=== PATIENT | male | born 1950 | race Caucasian/White ===

== ENCOUNTER 2020-07-31 13:56 | Outpatient (CLI) | payer MEDICARE, SELFPAY ==
--- NOTE | ~2020-07-31 | US_ITS ---
EXAMINATION: US thyroid DATE: 07/31/2020 14:31 INDICATION: Nontoxic goiter TECHNIQUE: Multiple ultrasound images of the thyroid were obtained. COMPARISON: None. FINDINGS: The right thyroid lobe measures 3.8 x 1.1 x 1.4 cm. The left thyroid lobe measures 3.6 x 1.0 x 1.1 c m. There is normal echotexture and echogenicity throughout the thyroid gland. No discrete nodules id entified. Normal vascular flow is present. IMPRESSION: 1. Unremarkable thyroid. Reviewed, dictated and finalized at location A. IMPRESSION: 1. Unremarkable thyroid.
== END 2020-07-31 13:57 | disposition home or self-care (01) ==
PROVIDERS: PCP Family Medicine; Visit Provider Family Medicine
DX: E04.9 Nontoxic goiter, unspecified (principal)
CPT/HCPCS: 76536

== ENCOUNTER 2021-03-26 07:26 | Outpatient (RCR) | payer MEDICARE, SELFPAY ==
[2021-03-26] MEDS: diphenhydrAMINE HCl CAP 25 MG CAPSULE PO (08:02)
[2021-03-26] MEDS: ACETAMINOPHEN 325 MG TABLET 650 MG PO (08:02)
[2021-03-26] MEDS: FAMOTIDINE 20 MG TABLET PO (08:02)
[2021-03-26 08:03] VITALS: BP 123/57; PULSE 88; RESP 18; TEMP 36.6; O2SAT 100
[2021-03-26 09:28] VITALS: BP 123/59; PULSE 70; O2SAT 99
== END 2021-03-26 17:00 ==
LOC: AMCINF 07:26
PROVIDERS: PCP Family Medicine; Visit Provider Internal Medicine Hematology & Oncology
DX: U07.1 COVID-19 (principal); C90.00 Multiple myeloma not having achieved remission; I10 Essential (primary) hypertension; D84.9 Immunodeficiency, unspecified; Z94.0 Kidney transplant status
CPT/HCPCS: A9270; M0247; Q0247

== ENCOUNTER 2021-07-01 08:01 | Outpatient (CLI) | payer MEDICARE, SELFPAY ==
[2021-07-01 08:31] LABS: Basophils Absolute Auto 0.1 K/mm3 (0.0-0.1); Basophils Percent Auto 0.8 % (0.2-1.2); Eosinophils Absolute Auto 0.3 K/mm3 (0-0.3); Eosinophils Percent Auto 4.2 % (0-4.4); Hematocrit 42.8 % (42.0-52.0); Hemoglobin 14.4 g/dL (14.0-18.0); Immature Granulocyte Absolute 0.04 K/mm3 (0.00-0.031); Immature Granulocyte Percent A 0.5 % (0-0.5); Lymphocytes Absolute Auto 1.47 K/mm3 (0.9-3.2); Lymphocytes Percent Auto 19.7 % (18.3-44.2); Mean Corpuscular HGB Conc 33.6 g/dl (32-36); Mean Corpuscular Hemoglobin 33.4 pg (26-34); Mean Corpuscular Volume 99.3 fl (80-100); Mean Platelet Volume 9.2 fl (7.4-10.4); Monocytes Absolute Auto 0.8 K/mm3 (0.1-0.6); Monocytes Percent Auto 10.2 % (2.6-8.5); Neutrophils Absolute Auto 4.8 K/mm3 (1.3-6.7); Neutrophils Percent Auto 64.6 % (45.5-73.1); Platelet Count Result 144 k/mm3 (150-375); Red Blood Count 4.31 M/mm3 (4.6-6.20); Red Cell Distribution Width 13.2 % (11.5-14.5); White Blood Count 7.5 K/mm3 (4.5-10.0)
[2021-07-01 08:39] LABS: INR 1.1
[2021-07-01 08:40] LABS: Partial Thromboplastin Time 26.2 SECONDS (22.3-36.8)
[2021-07-01 08:42] LABS: Anion Gap 6 mmol/L (8-16); Blood Urea Nitrogen 15 mg/dL (9-20); Calcium 9.1 mg/dL (8.4-10.2); Carbon Dioxide 27 mmol/L (22-30); Chloride 107 mmol/L (98-107); Estimated Glomerular Filt Rate > 60; Glucose 103 mg/dL (65-110); Potassium 3.8 mmol/L (3.4-5.0); Sodium 140 mmol/L (137-145)
== END 2021-07-01 08:02 | disposition home or self-care (01) ==
LOC: ANHSURGERY 08:08
PROVIDERS: Anesthesiology; PCP Family Medicine; Visit Provider Surgery
DX: K42.9 Umbilical hernia without obstruction or gangrene (principal); Z94.0 Kidney transplant status; N28.9 Disorder of kidney and ureter, unspecified
CPT/HCPCS: 36415; 80048; 85025; 85610; 85730

== ENCOUNTER 2021-08-26 09:16 | Outpatient (CLI) | payer MEDICARE, SELFPAY ==
[2021-08-26 10:05] LABS: INR 1.1; Prothrombin Time 13.8 Seconds (11.1-14.7)
[2021-08-26 10:06] LABS: Partial Thromboplastin Time 26.3 SECONDS (22.3-36.8)
== END 2021-08-26 09:17 | disposition home or self-care (01) ==
LOC: ANHSURGERY 09:21
PROVIDERS: Anesthesiology; PCP Family Medicine; Visit Provider Surgery
DX: Z94.0 Kidney transplant status (principal); Z01.818 Encounter for other preprocedural examination
CPT/HCPCS: 36415; 85610; 85730

== ENCOUNTER 2021-09-02 01:08 | Day surgery (SDC) | payer MEDICARE, SELFPAY ==
[2021-06-26 15:06] VITALS: BMI 26.3
--- NOTE | 2021-06-26 15:36 | PC.NURSE ---
Report to the Outpatient Waiting Room, entrance under the green pavilion located off [facility], at time __12:00PM on date ___07/03/21____. OR Time: __2:00PM . - You and your visitor will be asked a series of questions to screen for COVID 19 for your protection. - A mask is required within the hospital. Preoperative COVID Testing Requirements: No COVID Test needed if: (proof is required; if not received patient will have Rapid Test prior to entry) - Patient has received COVID Vaccine at least 14 days prior to procedure date or - Patient has positive COVID test result within last 90 days of surgery date. COVID Test needed if above criteria is not met If not COVID vaccinated a COVID test must be conducted within 72 hours of surgery and patient is asked to isolate self from time of testing until procedure. You will go to the [facility] for your COVID testing. The [facility] is located at the corner of [address] [facility]. You will only be called if COVID results are positive and your surgeon may reschedule your elective surgery date. Patients may have clear liquids (water, carbonated beverages, clear teas, apple juice) until 3 hours prior to surgery with a maximum of 20 ounces. - No food from midnight until time of surgery - Infants may have breast milk until 4 hours before surgery, formula 6 hours prior to surgery. - Children will be allowed to drink immediately following surgery. If applicable, please bring a bottle or sippy cup to assist with drinking. Juice, water, soda, and popsicles are readily available. For infants on formula, please bring formula the day of surgery. Pacifiers are allowed. Take the following medications with a SIP of water the morning of surgery: __LEVOTHYROXINE, MYCOPHENOLATE, PREDNISONE, TACROLIMUS Medications to discontinue per physician VITAMINS/SUPPLEMENTS 3 DAYS PRE-OP Date to take last dose 06/29/21 Please no make-up, nail afghan, hairspray, perfume, deodorant, or body powder the day of surgery. No jewelry (including any body piercings) or valuables the day of surgery, leave them at home. Please take a shower or bath the night before, or the morning of, surgery with an antibacterial soap. Wear comfortable, loose fitting clothing. Children are encouraged to wear pajamas. - Jewelry must be removed prior to entering the operating room. Rings and piercings that are not removed may be cut off. - The hospital will not accept responsibility for valuables. - Please leave all valuables, including medications, at home the day of surgery. If you are going home after surgery, a licensed stake driver must drive you home. - NO public transportation without another adult. - We recommend that an adult stay with you for 24 hours following discharge. - We also recommend that you do not drive, make important decision, drink alcoholic beverages, or take any drugs that were not prescribed by your health care provider for at least 24 hours after your discharge time. For Pediatric surgeries, we recommend two adults accompany the child home (only one inside the building at this time). One visitor will be allowed to accompany the patient into the hospital. Patients visitor will be instructed to remain with patient at all times or leave the building. We will allow the visitor to come back to the postoperative area when patient is ready. Follow any additional instructions given to you from your surgeon. Telephone instructions given to _PATIENT and asked if any additional questions and then verbalized understanding. Patient advised to call surgeon office or pre surgery nurse liaison [phone] if any additional questions.
--- NOTE | 2021-07-01 13:24 | PC.NURSE ---
Report to the Outpatient Waiting Room, entrance under the green pavilion located off [facility], at time _0830 on date _07/07/21 . OR Time: __1030 . - You and your visitor will be asked a series of questions to screen for COVID 19 for your protection. - A mask is required within the hospital. Preoperative COVID Testing Requirements: No COVID Test needed if: (proof is required; if not received patient will have Rapid Test prior to entry) - Patient has received COVID Vaccine at least 14 days prior to procedure date or - Patient has positive COVID test result within last 90 days of surgery date. COVID Test needed if above criteria is not met If not COVID vaccinated a COVID test must be conducted within 72 hours of surgery and patient is asked to isolate self from time of testing until procedure. You will go to the [facility] for your COVID testing. The [facility] is located at the corner of [address] [facility]. You will only be called if COVID results are positive and your surgeon may reschedule your elective surgery date. Patients may have clear liquids (water, carbonated beverages, clear teas, apple juice) until 3 hours prior to surgery with a maximum of 20 ounces. - No food from midnight until time of surgery - Infants may have breast milk until 4 hours before surgery, infant formula 6 hours prior to surgery. - Children will be allowed to drink immediately following surgery. If applicable, please bring a bottle or sippy cup to assist with drinking. Juice, water, soda, and popsicles are readily available. For infants on formula, please bring formula the day of surgery. Pacifiers are allowed. Take the following medications with a SIP of water the morning of surgery: LEVOTHYROXINE,MYCOPHENOLATE,PREDNISONE,TACROLIMUS Medications to discontinue per physician ALL VITAMINS/SUPPLEMENTS 3 DAYS PRE OP Date to take last dose___07/03/21 Please no make-up, nail czech, hairspray, perfume, deodorant, or body powder the day of surgery. No jewelry (including any body piercings) or valuables the day of surgery, leave them at home. Please take a shower or bath the night before, or the morning of, surgery with an antibacterial soap. Wear comfortable, loose fitting clothing. Children are encouraged to wear pajamas. - Jewelry must be removed prior to entering the operating room. Rings and piercings that are not removed may be cut off. - The hospital will not accept responsibility for valuables. - Please leave all valuables, including medications, at home the day of surgery. HIBICLENS SHOWER MORNING OF SURGERY If you are going home after surgery, a licensed auto parts delivery driver must drive you home. - NO public transportation without another adult. - We recommend that an adult stay with you for 24 hours following discharge. - We also recommend that you do not drive, make important decision, drink alcoholic beverages, or take any drugs that were not prescribed by your health care provider for at least 24 hours after your discharge time. For Pediatric surgeries, we recommend two adults accompany the child home (only one inside the building at this time). One visitor will be allowed to accompany the patient into the hospital. Patients visitor will be instructed to remain with patient at all times or leave the building. We will allow the visitor to come back to the postoperative area when patient is ready. Follow any additional instructions given to you from your surgeon. Telephone instructions given to ___PT and asked if any additional questions and then verbalized understanding. Patient advised to call surgeon office or pre surgery nurse liaison [phone] if any additional questions.
--- NOTE | 2021-07-01 13:27 | PC.NURSE ---
PT STATES NO CHANGE IN HEALTH HX SINCE LAST INTERVIEW ON 06/26/21
[2021-08-07 14:27] VITALS: BMI 26.4
--- NOTE | 2021-08-07 14:50 | PC.NURSE ---
Report to the Outpatient Waiting Room, entrance under the green pavilion located off [facility], at time __6:30AM on date _08/19/21 . OR Time: __8:30AM . - You and your visitor will be asked a series of questions to screen for COVID 19 for your protection. - Only one visitor is allowed at this time. - The patient visitor is requested to leave or wait in car when not with patient. - A mask is required within the hospital. Patients may have clear liquids (water, carbonated beverages, clear teas, apple juice) until 3 hours prior to surgery with a maximum of 20 ounces. - No food from midnight until time of surgery - Infants may have breast milk until 4 hours before surgery, formula 6 hours prior to surgery. - Children will be allowed to drink immediately following surgery. If applicable, please bring a bottle or sippy cup to assist with drinking. Juice, water, soda, and popsicles are readily available. For infants on formula, please bring formula the day of surgery. Pacifiers are allowed. Take the following medications with a SIP of water the morning of surgery: ___LEVOTHYROXINE, MYCOPHENOLATE, PREDNISONE, TACROLIMUS Medications to discontinue per physician ___HOLD ALL VITAMINS/SUPPLEMENTS 3 DAYS PRE-OP-LAST DOSE 08/15/21 NOT NECESSARY TO STOP ASPIRIN IN ADVANCE PER DR GUEVARA. Please no make-up, nail cambodian, hairspray, perfume, deodorant, or body powder the day of surgery. No jewelry (including any body piercings) or valuables the day of surgery, leave them at home. Please take a shower or bath the night before, or the morning of, surgery with an antibacterial soap. Wear comfortable, loose fitting clothing. Children are encouraged to wear pajamas. - Jewelry must be removed prior to entering the operating room. Rings and piercings that are not removed may be cut off. - The hospital will not accept responsibility for valuables. - Please leave all valuables, including medications, at home the day of surgery. *HIBICLEN SHOWER MORNING OF SURGERY If you are going home after surgery, a licensed otr van cdl truck driver must drive you home. - NO public transportation without another adult. - We recommend that an adult stay with you for 24 hours following discharge. - We also recommend that you do not drive, make important decision, drink alcoholic beverages, or take any drugs that were not prescribed by your health care provider for at least 24 hours after your discharge time. For Pediatric surgeries, we recommend two adults accompany the child home (only one inside the building at this time). Follow any additional instructions given to you from your surgeon. If you or anyone in your household have experienced Covid symptoms in the past week, please notify your surgeon or the nurse liaison at the phone number below for possible testing. Telephone instructions given to __PATIENT and asked if any additional questions and then verbalized understanding. Patient advised to call surgeon office or pre surgery nurse liaison [phone] if any additional questions.
[2021-08-21 09:35] VITALS: BMI 27.0
--- NOTE | 2021-08-21 09:37 | PC.NURSE ---
Report to the Outpatient Waiting Room, entrance under the green pavilion located off [facility], at time __10:00AM on date __09/02/21 . OR Time: __12:00PM . - You and your visitor will be asked a series of questions to screen for COVID 19 for your protection. - Only one visitor is allowed at this time. - The patient visitor is requested to leave or wait in car when not with patient. - A mask is required within the hospital. Patients may have clear liquids (water, carbonated beverages, clear teas, apple juice) until 3 hours prior to surgery with a maximum of 20 ounces. - No food from midnight until time of surgery - Infants may have breast milk until 4 hours before surgery, formula 6 hours prior to surgery. - Children will be allowed to drink immediately following surgery. If applicable, please bring a bottle or sippy cup to assist with drinking. Juice, water, soda, and popsicles are readily available. For infants on formula, please bring formula the day of surgery. Pacifiers are allowed. Take the following medications with a SIP of water the morning of surgery: _LEVOTHYROXINE, MYCOPHENOLATE, PREDNISONE, TACROLIMUS Medications to discontinue per physician HOLD ALL VITAMINS/SUPPLEMENTS 3 DAYS PRE-OP Date to take last dose 08/29/21 NOT NECESSARY TO HOLD ASPIRIN PER DR GUEVARA. Please no make-up, nail kosovan, hairspray, perfume, deodorant, or body powder the day of surgery. No jewelry (including any body piercings) or valuables the day of surgery, leave them at home. Please take a shower or bath the night before, or the morning of, surgery with an antibacterial soap. Wear comfortable, loose fitting clothing. Children are encouraged to wear pajamas. - Jewelry must be removed prior to entering the operating room. Rings and piercings that are not removed may be cut off. - The hospital will not accept responsibility for valuables. - Please leave all valuables, including medications, at home the day of surgery. If you are going home after surgery, a licensed otr company driver must drive you home. - NO public transportation without another adult. - We recommend that an adult stay with you for 24 hours following discharge. - We also recommend that you do not drive, make important decision, drink alcoholic beverages, or take any drugs that were not prescribed by your health care provider for at least 24 hours after your discharge time. For Pediatric surgeries, we recommend two adults accompany the child home (only one inside the building at this time). Follow any additional instructions given to you from your surgeon. If you or anyone in your household have experienced Covid symptoms in the past week, please notify your surgeon or the nurse liaison at the phone number below for possible testing. Telephone instructions given to ___PATIENT and asked if any additional questions and then verbalized understanding. Patient advised to call surgeon office or pre surgery nurse liaison [phone] if any additional questions.
--- NOTE | 2021-08-31 16:39 | PM.SD2 ---
Same Day Admit/Disch: HPI History of Present Illness Chief complaint: umbilical hernia Narrative: Naeem Ramirez is a 71 year old male With a history of multiple myeloma currently in remission. He has a history of chronic kidney disease but stable creatinine of 1.2. He had a kidney transplant and takes tacrolimus and mycophenolate. This is a living related donor transplant and was performed in February of 2020. He recently had a sinus infection treated with amoxicillin which has resolved. He noticed a tender bulge in the umbilical area last February. This has been occasionally painful and persistently tender. He was seen in the office and found to have a reducible umbilical hernia. He is taken to surgery now for umbilical hernia repair with mesh. His myeloma has been in remission for 3 years. [facility] Past Medical History Medical History Abnormal fasting glucose BMI 26.0-26.9,adult BPH without obstruction/lower urinary tract symptoms Chronic anemia Chronic anxiety Chronic kidney disease (CKD) stage G4/A3, severely decreased glomerular filtration rate (GFR) between 15-29 mL/min/1.73 square meter and albuminuria creatinine ratio greater than 300 mg/g Enlarged thyroid Male erectile dysfunction, unspecified Nocturia Sinusitis, acute Vitamin D insufficiency Surgical History Surgical History Renal transplant recipient Family History Family History Father Family history of cardiovascular disease, Onset Age: 83 Family history of chronic obstructive pulmonary disease, Onset Age: 83 Family history of renal failure, Onset Age: 83 Sibling Acute myocardial infarction, Onset Age: 62 Grandparent Family history of malignant neoplasm Family history of chronic obstructive pulmonary disease, Onset Age: 83 Social History Social History Smoking packs per day: 0.5 Smoking cigarettes per day: 10.0 Years smoked: 10 Smoking pack-years: 5.00 Smoking status: Former smoker Tobacco type: cigarettes Smoking end date: 09/12/79 Additional smoking assessment comments: 1/2 pack daily for ten years Alcohol intake: current Drinks per week: 6 Alcohol use details: Rarely Substance use: never Substance use type: does not use Living arrangements: with family Additional living arrangements comments: Spiritual care concerns: No Same Day Admit/Disch: Med Pre-admit Medications Home Medications Medication Instructions Recorded Confirmed Type B-complex with vitamin C 1 cap PO DAILY 01/17/19 09/02/21 History aspirin 81 mg tablet,delayed 81 mg PO DAILY 01/17/19 09/02/21 History release sennosides 8.6 mg-docusate sodium 1 tab-cap PO DAILY PRN Constipation 01/17/19 09/02/21 History 50 mg tablet (Senna with Docusate Sodium) cholecalciferol (vitamin D3) 25 2,000 unit PO DAILY 07/28/20 09/02/21 History mcg (1,000 unit) capsule prednisone 5 mg tablet 5 mg PO QAM 07/28/20 09/02/21 History atorvastatin 10 mg tablet 10 mg PO DAILY #90 tabs 09/16/20 09/02/21 Rx quetiapine 50 mg tablet 25 mg PO .qhs #90 tabs 09/29/20 09/02/21 Rx mycophenolate sodium 180 mg 180 mg PO QAM 02/02/21 09/02/21 History tablet,delayed release sildenafil (pulm.hypertension) 20 20 mg PO DAILY PRN Erectile 06/26/21 09/02/21 History mg tablet Dysfunction tacrolimus 0.75 mg tablet,extended 1.5 mg PO QAM 06/26/21 09/02/21 History release 24 hr tamsulosin 0.4 mg capsule (Flomax) 0.8 mg PO HS 08/07/21 09/02/21 History levothyroxine 75 mcg tablet 75 mcg PO QAM #90 tabs 08/17/21 09/02/21 Rx amoxicillin 875 mg tablet 875 mg PO Q12H #20 tabs 08/18/21 09/02/21 Rx hydrocodone 5 mg-acetaminophen 325 1 - 2 tablet PO Q6H PRN pain #12 09/02/21 Rx mg tablet tabs Exam Const: General: comfo
[2021-09-02 10:31] VITALS: BP 132/69; PULSE 60; RESP 18; TEMP 36; O2SAT 99
[2021-09-02] MEDS: LACTATED RINGERS 1,000 ML 30 ML IV CONT (10:44)
[2021-09-02] MEDS: ACETAMINOPHEN 500 MG TABLET 1000 MG PO (10:58)
--- NOTE | 2021-09-02 11:16 | WPDANESEPPF ---
Anes - Initial Pre Proc Eval Procedure: Operation Date: 09/02/21 12:00 Proposed Procedures p Umbilical Hernia Repair with Mesh - Matthew Warren MD Date/Time: 09/02/21 11:16 Surgeon: Matthew Warren MD Pre Op Diagnosis: umbilical hernia Patient Data Age: 71 Gender: M Height: 1.91 m Weight: 96.2 kg Last Vital Signs Temp 36.0 C L 09/02/21 10:31 Pulse 60 09/02/21 10:31 Resp 18 09/02/21 10:31 BP 132/69 09/02/21 10:31 Pulse Ox 99 09/02/21 10:31 O2 Del Method Room Air 09/02/21 10:31 Allergies Allergy/AdvReac Type Severity Reaction Status Date / Time No Known Allergies Allergy Verified 09/02/21 10:23 Home Medications Medication Instructions Recorded Confirmed Type B-complex with vitamin C 1 cap PO DAILY 01/17/19 09/02/21 History aspirin 81 mg tablet,delayed 81 mg PO DAILY 01/17/19 09/02/21 History release sennosides 8.6 mg-docusate sodium 1 tab-cap PO DAILY PRN Constipation 01/17/19 09/02/21 History 50 mg tablet (Senna with Docusate Sodium) cholecalciferol (vitamin D3) 25 2,000 unit PO DAILY 07/28/20 09/02/21 History mcg (1,000 unit) capsule prednisone 5 mg tablet 5 mg PO QAM 07/28/20 09/02/21 History atorvastatin 10 mg tablet 10 mg PO DAILY #90 tabs 09/16/20 09/02/21 Rx quetiapine 50 mg tablet 25 mg PO .qhs #90 tabs 09/29/20 09/02/21 Rx mycophenolate sodium 180 mg 180 mg PO QAM 02/02/21 09/02/21 History tablet,delayed release sildenafil (pulm.hypertension) 20 20 mg PO DAILY PRN Erectile 06/26/21 09/02/21 History mg tablet Dysfunction tacrolimus 0.75 mg tablet,extended 1.5 mg PO QAM 06/26/21 09/02/21 History release 24 hr tamsulosin 0.4 mg capsule (Flomax) 0.8 mg PO HS 08/07/21 09/02/21 History levothyroxine 75 mcg tablet 75 mcg PO QAM #90 tabs 08/17/21 09/02/21 Rx amoxicillin 875 mg tablet 875 mg PO Q12H #20 tabs 08/18/21 09/02/21 Rx hydrocodone 5 mg-acetaminophen 325 1 - 2 tablet PO Q6H PRN pain #12 09/02/21 Rx mg tablet tabs Patient hx anesthesia problems: none Family hx anesthesia problems: none Results Review: All pre-operative results and documents have been reviewed as part of the pre-operative evaluation. [facility] Past Medical History Medical History Abnormal fasting glucose BMI 26.0-26.9,adult BPH without obstruction/lower urinary tract symptoms Chronic anemia Chronic anxiety Chronic kidney disease (CKD) stage G4/A3, severely decreased glomerular filtration rate (GFR) between 15-29 mL/min/1.73 square meter and albuminuria creatinine ratio greater than 300 mg/g Enlarged thyroid Male erectile dysfunction, unspecified Nocturia Sinusitis, acute Vitamin D insufficiency Surgical History Surgical History Renal transplant recipient Family History Family History Father Family history of cardiovascular disease, Onset Age: 83 Family history of chronic obstructive pulmonary disease, Onset Age: 83 Family history of renal failure, Onset Age: 83 Sibling Acute myocardial infarction, Onset Age: 62 Grandparent Family history of malignant neoplasm Family history of chronic obstructive pulmonary disease, Onset Age: 83 Social History Social History Smoking packs per day: 0.5 Smoking cigarettes per day: 10.0 Years smoked: 10 Smoking pack-years: 5.00 Smoking status: Former smoker Tobacco type: cigarettes Smoking end date: 09/12/79 Additional smoking assessment comments: 1/2 pack daily for ten years Alcohol intake: current Drinks per week: 6 Alcohol use details: Rarely Substance use: never Substance use type: does not use Living arrangements: with family Additional living arrangements comments: Spiritual care concerns: No Anes - Eval Final PreProcedure Da
--- NOTE | 2021-09-02 11:28 | WPDHPUPDATE1 ---
History and Physical Update Update Date/Time: 09/02/21 11:28 History and Physical has been reviewed, including an updated exam of the patient. There are NO changes in the patient's condition. Risks, benefits, and alternatives have been discussed and questions answered. Patient agrees to proceed with procedure.
[2021-09-02] MEDS: ceFAZolin 2 GM/D5W 50 ML 2 GM/50 ML BAG IVPB (11:47)
[2021-09-02] MEDS: LIDO 1%/EPINEPHRINE/PF 1:200,000 30 ML VIAL XX (11:58)
[2021-09-02 12:35] VITALS: BP 96/47; PULSE 61; RESP 16; O2SAT 94
[2021-09-02 13:05] VITALS: BP 107/55; PULSE 57; RESP 20
[2021-09-02 13:35] VITALS: BP 107/55; PULSE 56; RESP 20
[2021-09-02 13:55] VITALS: BP 113/58; PULSE 56; RESP 20
--- NOTE | 2021-09-02 15:38 | W.PM.PROC2 ---
Procedure Note - Detailed Date of Procedure 09/02/21 Pre-op Diagnosis umbilical hernia Post-op Diagnosis Same Procedure Performed Umbilical hernia repair with mesh Surgeon Matthew Warren MD Supervisor Hand Workers Alia POOL Anesthesia General (G IV S) and Local (1% lidocaine with epinephrine) Indications Patient has a symptomatic reducible umbilical hernia. He is taken to surgery now for repair. Findings Patient had about a 1 cm defect. Description of Procedure Patient was checked in the preoperative holding area. He was taken to surgery and anesthesia was introduced. The abdomen is prepped and draped. The proposed incision was drawn along the upper margin of the umbilicus. Local anesthetic was infiltrated into the skin and the deeper subcutaneous tissues. Incision was then made dissection carried down through the subcutaneous. Crossing veins were cauterized and divided. We dissected down to the hernia sac and then dissected around the hernia sac. The fascia around the hernia defect was exposed. I infiltrated additional local into the fascia and the base of the hernia sac. I then divided the hernia sac at its base. There was some properitoneal fat in the hernia defect. This was excised and discarded as well. Care was taken to avoid injury to the umbilical skin. I placed a finger in the hernia defect and checked for any hernias in the area. None were seen. I chose a 4.[address] mesh patch. This was placed in the defect and centered appropriately. 0 Ethibond sutures were then placed in the cranial and caudal midline. These sutures were placed in such a fashion that they would draw the edges of the hernia defect towards 1 another 1 tied. I tied the suture in the had the desired effect. I removed the straps associated with the Ventralex ST patch. I then closed the hernia defect over the mesh with [id number] mattress sutures of 0 Ethibond. Each of these suture incorporated a bit of mesh as well. I infiltrated additional local around the area of the repair. The umbilical skin was then sutured to the fascia with 3-0 Vicryl. Some subcutaneous 3-0 Vicryl sutures were placed. The skin was loosely approximated with subcuticular interrupted 4-0 Vicryl suture. Finally a running 4-0 Monocryl skin suture was placed to close the skin. The wound was dressed with Exofin surgical adhesive. The patient was awakened and taken to recovery in good condition. Sponge and needle counts were correct x2. Implants 4.[address] patch Estimated Blood Loss -5 Drains No Packing No Pathology None sent Complications No immediate complications Condition Stable Disposition Same day [facility] Billing Surgery - Charge Forward: Surgery Billing (Repair umbilical hernia with mesh)
== END 2021-09-02 14:00 | disposition home or self-care (01) ==
PROVIDERS: PCP Family Medicine; Visit Provider Surgery
PROC: (CPT 49585; principal; 2021-09-02 12:00)
DX: K42.9 Umbilical hernia without obstruction or gangrene (principal); N18.31 Chronic kidney disease, stage 3a; N40.0 Benign prostatic hyperplasia without lower urinary tract symptoms; D64.9 Anemia, unspecified; F41.9 Anxiety disorder, unspecified; E55.9 Vitamin D deficiency, unspecified; Z94.0 Kidney transplant status; Z87.891 Personal history of nicotine dependence
CPT/HCPCS: 49585; A9270; C1781; J0690; J2250; J2704; J3010; J7120

== ENCOUNTER 2025-02-13 | Day surgery (SDC) | payer MEDICARE, SELFPAY ==
[2025-01-28 09:34] VITALS: BMI 25.0
--- OUTSIDE RECORDS SUMMARY | 2025-02-13 00:05 | XMS_ITS | Encounter Summary ---
Author Organization [facility] Address [address] [place] [address] Phone Care Team Providers Care Residential Mental Health Worker Name Role Phone Brad Juarez MD Primary Care Provider [phone] Surya Christine MD Unavailable [phone] Srinivasan Baig MD Unavailable Kim Cazares RN Unavailable Vahid Gerardo RN Unavailable [phone] Pearl Muller RN Unavailable Unavailabl e Encounter Details Date Type Department Care Team (Late st Contact Info) Description 08/28/2018 Social Work [facility] Medicine Nephrology [address] [facility] 5[address] [place] [address] [place] [address] Susie Salazar LCSW Social History Tobacco Use Types Packs/Day Years Used Date Smoking Tobacco: Former Cigarettes 0 09/20/1977 - 09/20/1989 Smokeless Tobacco: Former Snuff Quit: 09/20/1974 Comments:ONLY a social smoke r Alcohol Use Standard Drinks/Week Comments Yes 0 (1 standard drink = 0.6 oz pur e alcohol) Occasional Sex and Gender Information Value Date Recorded Sex Assigned at Not on file 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 There is a significant event note with an alternative diagnosis and at least one negative COVID-19 test documented in Epic. Patient meets criteria for COVID-19 isolation discontinuation. Kary Ruiz RN 11/09/2019 Automatically added due to negative COVID-19 result. 11/09/2019 11/09/2019 11/09/2019 3:15 PM C DT documented as of this encounter Care Teams Residential Mental Health Worker Relationship Specialty Start Date End Date Brad Juarez MD [address] [address] PCP - General 07/07/17 Surya Christine MD [address] [facility] [address] [address] Referring Physician Nephrology 10/02/19 Srinivasan Baig MD [address] [facility] [address] [place] [address] Medical Oncologist/Diaper Folder Medical Oncology 11/12/19 Kim Cazares RN Fixed Income Director 03/04/20 Vahid Gerardo, MARY LOU [address] [facility] [address] [place], [place] [id number] Fixed Income Director 03/04/20 Pearl Muller, calender inspectorFixed Income Director 02/11/25 documented as of this encounter
--- OUTSIDE RECORDS SUMMARY | 2025-02-13 00:05 | XMS_ITS | Clinical Summary ---
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 08/07/19 16 Active famotidine-Ca carb-mag hydrox (PEPCID COMPLETE) 10-800-165 mg chewable tablet Take 1 tablet by mouth daily as needed for heartburn or indigestion Active aspirin 81 mg enteric coated tablet Take 1 tablet (81 mg total) by mouth every morning Active ascorbic acid 500 mg tablet,chewabl e Take 1 tablet/chew tab (500 mg total) by mouth every morning Active atorvastatin (LIPITOR) 10 mg tablet Take 1 tablet (10 mg total) by mouth nightly Active cholecalcifero l (VITAMIN D-3) 2000 unit capsule Take 1 capsule (2,000 Units total) by mouth every morning Active cyanocobalamin (Vitamin B-12) 500 mcg tablet Take 1 tablet (500 mcg total) by mouth every morning Active tacrolimus XR (Envarsus XR) 1 mg tablet extended release 24 hrIndications: Prevention of Kidney Transplant Rejection Take 1 tablet (1 mg total) by mouth every morning 30 tablet 11 09/05/19 25 026 Active predniSONE (DELTASONE) 5 mg tablet TAKE ONE TABLET BY MOUTH EVERY DAY 90 tablet 3 11/29/19 25 Active QUEtiapine (SEROquel) 25 mg tablet Take 1 tablet (25 mg total) by mouth as needed Active nintedanib (Ofev) 150 mg capsule TAKE 1 CAPSULE (150MG) BY MOUTH TWICE DAILY (EVERY 12 HOURS) DIRECTED WITH FOOD. 60 capsule 02/13/20 25 Active Ofev 150 mg capsule TAKE 1 CAPSULE (150MG) BY MOUTH TWICE DAILY (EVERY 12 HOURS) DIRECTED WITH FOOD. 60 capsule 12/07/19 25 025 Discontinued Active Problems Patient Care Coordination No te Formatting of this note migh t be different from the original. [facility]: Q-MONTHLY, FK; Q-3 ROUTINE (Exp 09/25/24) [facility]: (Exp 03/28/25) Problem Noted Date Diagnosed Date BPH with obstruction/lower urinary tract symptom s 08/31/2024 Benign prostatic hyperplasia 08/01/2024 ILD (interstitial lung disease) 11/05/2022 Immunocompromised 09/28/2021 Transplanted kidney 03/05/2020 Fever 11/08/2019 Bicytopenia 11/08/2019 TRAE (obstructive sleep apnea) 10/02/2019 Lumbar spondylosis 05/25/2019 Chronic bilateral low back pain without sciatica 05/25/2019 Vasculogenic erectile dysfunction 04/26/2019 Need for immunization against influenza 12/23/19 19 Elevated PSA 02/07/2018 Renal osteodystrophy 12/27/2017 CRD (chronic renal disease), stage IV 09/13/2017 Hyperphosphatemia 08/02/2017 Hypovitaminosis D 08/02/2017 Multiple myeloma 07/18/2017 Bradycardia 07/10/2017 Metabolic acidosis 07/10/2017 Hyperkalemia 2017 Essential hypertension 07/07/2017 Assessment & Plan (07/07/2017 9:06 PM CDT): Patient currenty On ccupril Will Hold The Medication D/t ARF And Hyperkalemia Start on hydralazine 10 mg TID for now, will adjust the dose of the medication As needed Acquired hypothyroidism 07/07/2017 Assessment & Plan (07/07/2017 9:14 PM CDT): Continue With Home dose Of levothyroxine Anxiety 12/27/2008 Hypersomnolence 12/27/2008 Hypercholesterolemia 12/27/2008 Insomnia 12/27/2008 Poor sleep hygiene 12/27/2008 Resolved Problems Problem Noted Date Diagnosed Date Resolved Date ESRD (end stage renal disease) 02/12/2020 03/05/2020 Overview (02/12/2020): Added automatically from request for surgery [id number] Encounters Date Type Department Care Team Description 02/04/2025 Telephone [facility] [address] [facility] [address] [place] [address] [place] [address] Annamaria Marley for ofev (Per cmm and humana auth is approved for ofev) 02/01/2025 3:00 PM DIGITAL ACCOUNT COORDINATOR Office Visit [facility] Marrow Transplant [address] [place] [address] Jasmyne Polk, PORFIRIO Multiple myeloma in remission (HCC) (Primary Dx); Multiple myeloma, remission status unspecified (HCC) 02/01/2025 2:30 PM DIGITAL ACCOUNT COORDINATOR Lab [facility] [address] [place] [address] Multiple myeloma, remission status unspecified (HCC) 01/31/2025 Telephone [facility] Trans[facility] Kidney [address] [address] Mailstop [phone] [place] [address] Lindsay Mendes RN 01/30/2025 8:35 AM DIGITAL ACCOUNT COORDINATOR Lab [facility] Laboratory [address] [place] [address] Multiple myeloma in remission (HCC) 01/30/2025 8:20 AM DIGITAL ACCOUNT COORDINATOR Lab [facility] Laboratory [address] [address] Kidney replaced by transplant; Encounter for long-term (current) use of medications 01/10/2025 Orders Only ARAUJO MILTON SLEEP Scanning, Provider 01/04/2025 9:15 AM CDT Office Visit [facility] Medicine Pulmonary [address] [facility] [address] [facility] [address] [place] [address] [place] [address] Nasim Hanson MD ILD (interstitial lung disease) (HCC) (Primary Dx); High risk medication use; Immunocompromised 01/04/2025 8:30 AM CDT - 01/04/2025 11:59 PM CDT Hospital Encounter [facility] Pulmonary [address] [facility] [address] [place] [address] ILD (interstitial lung disease) (HCC) Discharge Disposition: Discharge to home or self care 12/24/2024 Telephone [facility] Neuro Sleep [address] [facility] [facility] 6th [address] [place] [address] No Oneal MA DME 12/20/2024 7:30 PM CDT Procedure visit [facility] Neuro Sleep [address] [facility] [place] [phone] TRAE (obstructive sleep apnea) (Primary Dx) 12/03/2024 9:00 AM CDT Office Visit [facility] Neuro Sleep [address] [facility] [facility] 6[address] [place] [address] Nenita Arenas NP TRAE (obstructive sleep apnea) (Primary Dx) 11/30/2024 8:50 AM CDT Lab [facility] Laboratory [address] [place] [address] Kidney replaced by transplant; Encounter for long-term (current) use of medications 11/29/2024 4:00 PM CDT Office Visit [facility] [address] [facility] [address] [place] [address] Hermelindo Roper MD Benign prostatic hyperplasia, unspecified whether lower urinary tract symptoms present (Primary Dx); Other male erectile dysfunction from Last 3 Months Immunizations Immunization Administration Dates Next Due DT 03/14/2006 Influenza, Quadrivalent, Cassandra l Culture-based MDCK, Preservative Free, Antibiotic Free, Intramuscular 12/22/2018,12/14/2017 Influenza, Quadrivalent, Hig h Dose, Preservative Free, Intrr 01/04/2022,01/30/2020 Influenza, Trivalent, Adjuva nted, Intramuscular 01/04/2025 Influenza, Trivalent, High D ose, Split, Preservative Free, Intramuscular 02/08/2024,03/11/2016 Influenza, Unspecified 01/13/2020,01/12/2009 Pfizer SARS-CoV-2 Monovalent Vaccination (12+ Yrs) PURPLE 10/27/2020,06/21/2020,05/29/2020 Pneumococcal Conjugate PCV 13 01/17/2018 RSV Vaccine, Pref, Recombina nt, Subunit, Adjuvanted, PF, IM (Arexvy) 01/04/2025 Tdap 08/16/2023,01/18/2015,12/12/2014 ZOSTER LIVE 04/30/2014 ZOSTER Recombinant 12/13/2017 Surgical History Surgery Date Site/Laterality Comments CENTRAL LINE PLACEMENT > 5 YEARS 11/23/2017 N/A BONE MARROW BIOPSY 07/12/2017 - 08/11/2017 RENAL BIOPSY 07/12/2017 - 08/11/2017 VASECTOMY 03/14/1979 - 03/13/1980 COLONOSCOPY 03/14/2013 - 03/13/2014 PROSTATE BIOPSY 04/14/2018 - 05/11/2018 UMBILICAL HERNIA REPAIR KIDNEY TRANSPLANT 03/05/2020 Medical History Medical History Date Comments History of chemotherapy Vision loss History of chemotherapy last Oct 2017 CKD (chronic kidney disease) Multiple myeloma PONV (postoperative nausea and vomiting) morphine SBO (small bowel obstruction) (HCC) medical management Tinnitus Hypertension Arthritis Chronic pain Spinal stenosis Shingles Sleep apnea NO CPAP USE End stage renal disease History of blood transfusion Lizbeth positive Hypothyroidism Former smoker quit 1989 Bradycardia Hyperlipidemia Family History Medical History Relation Name Comments Heart disease Brother 1 high cholestrol Brother 1 Heart attack Brother 2 Hypertension Brother 3 Hypertension Brother 4 Pulmonary fibrosis Brother 5 Herman Cancer Father Heart disease Father Kidney disease Father pulmonary fibrosis Mother Asthma Sister 1 Breast cancer Sister 2 high cholestrol Sister 2 thuroid Sister 2 Anesthesia problems Neg Hx Stroke Neg Hx Relation Name Status Comments Brother 1 Alive Brother 2 (Age 62) fatal [place] Brother 3 Alive Brother 4 Alive Brother 5 Herman Alive Daughter (Age 1.5 yrs old) o steogenesis imperfecta Father Mother Sister 1 Alive Sister 2 Alive Social History Tobacco Use Types Packs/Day Years Used Date Smoking Tobacco: Former Cigarettes 0 09/20/1977 - 09/20/1989 Passive Smoke Exposure: Past Smokeless Tobacco: Former Snuff Quit: 09/20/1974 Tobacco Cessation:Counseling Given: No Comments:ONLY a social smoker Alcohol Use Standard Drinks/Week Comments Yes 0 (1 standard drink = 0.6 oz pur e alcohol) Occasional Social Connection and Isolation Panel Answer Date Recorded In a typical week, how many times do you talk on the phone with family, friends, or neighbors? Three times a week 03/05/2020 How often do you get togethe r with friends or relatives? Twice a week 03/05/2020 Attends Yazdanism Services Not on file 03/05 Active Member of Clubs or Organizations Not on f ile 03/05/2020 Attends Club or Organization Meetings Not on kai e 03/05/2020 Are you , , di vorced, , never , or living with a partner? 03/05/2020 AUDIT-C Answer Date Recorded Q1: How often do you have a drink containing alc ohol? 2-4 times a month 08/31/2024 Q2: How many drinks containi ng alcohol do you have on a typical day when you are drinking? 1 or 2 08/31/2024 Q3: How often do you have si x or more drinks on one occasion? Never 08/31/2024 Overall Financial Resource Strain (CARDIA) Answe r Date Recorded How hard is it for you to pa y for the very basics like food, housing, medical care, and heating? Not hard at all 03/05/2020 Hunger Vital Sign Answer Date Recorded Within the past 12 months, y ou worried that your food would run out before you got the money to buy more. Never true 03/05/20 20 Within the past 12 months, t he food you bought just didn't last and you didn't have money to get more. Never true 03/05/2020 PRAPARE - Transportation Answer Date Re corded In the past 12 months, has l ack of transportation kept you from medical appointments or from getting medications? No 02/12 In the past 12 months, has l ack of transportation kept you from meetings, work, or from getting things needed for daily living? No 03/05/2020 Personal Safety Answer Date Recorded Have you ever been in or are you currently in a harmful physical or emotional relationship or is someone making you feel afraid or unsafe? Denies 08/31/2024 Sex and Gender Information Value Date Recorded Sex Assigned at Not on file Legal Sex Male 11:00 AM DIGITAL ACCOUNT COORDINATOR Gender Identity Not on file Sexual Orientation Not on file Last Filed Vital Signs Vital Sign Reading Time Taken Comments Blood Pressure 150/73 02/01/2025 3:26 PM DIGITAL ACCOUNT COORDINATOR Pulse 74 02/01/2025 3:26 PM DIGITAL ACCOUNT COORDINATOR Temperature 37 C (98.6 F) 02/01/2025 3:26 PM DIGITAL ACCOUNT COORDINATOR Respiratory Rate 14 02/01/2025 3:26 PM DIGITAL ACCOUNT COORDINATOR Oxygen Saturation 98% 02/01/2025 3:26 PM DIGITAL ACCOUNT COORDINATOR Inhaled Oxygen Concentration - - Weight 93 kg (205 lb) 02/01/2025 3:26 PM DIGITAL ACCOUNT COORDINATOR Height 190.5 cm (6' 3) 01/04/2025 9:11 AM CDT Body Mass Index 25.62 01/04/2025 9:11 AM CDT Plan of Treatment Health Maintenance Due Date Last Done Comments Depression Screening 1950 Well Visit 65+ 07/09/2015 Zoster Vaccine (2 of 2) 02/07/2018 12/13/2017, 04/30 Pneumococcal vaccine 65+ (2 of 2 - PPSV23, PCV20, or PCV21) 03/14/2018 01/17/2018 Colon Cancer Screening-Colonoscopy 11/16/2023 11/15/2013, 11/15/2013 Covid-19 Vaccine (5 - 2024-2 6 season) 2024 03/01/2023, 10/27/2020, 06/21/2020, Additional history exists Fall Risk Assessment 09/03/2025 09/03/2024 DTaP/Tdap/Td Vaccine (5 - Td or Tdap) 08/15/2033 08/16/2023, 01/18/2015, 12/12/2014, Additional history exists Colon Cancer Screening-CT Colonography Discontinued 11/15/2013, 11/15/2013 Colon Cancer Screening-DNA Stool Discontinued 11/16/19 14, 11/15/2013 Colon Cancer Screening-FIT Discontinued 11/15/2013, Colon Cancer Screening-Sigmoidoscopy Discontinued 11/15/2013, 11/15/2013 Hepatitis B Screening Completed 02/19/2020 Hepatitis C Screening Completed 02/19/2020 , 09/17/2019, 2017 Abdominal Aortic Aneurysm (A AA) Screen Completed 03/23/2021, 09/17/2019 Prostate Cancer Screening-PSA Discontinued , 03/24/2021, 01/29/2021, Additional history exists Influenza Vaccine Completed 01/04/2025, , 01/04/2022, Additional history exists Medical Devices Explanted Type Area Brand Analyst Device Identifier Shelf Expiration Date Model / Serial / Lot Circon-Surgite k [id number] 6fr 20cm 100cm 1 Step Insert Push Catheter [employer] Suture - [id number] Implanted:Qty: 1 on 03/04/2020 by Josue Espinoza MD at [facility] Explanted:Qty: 1 on 04/01/2020 by Isaak Chiang NP Stent Right: Ureter [employer] 11/06/2024 [id number] / / [id number] Description:Transplanted Ure ter Procedures Procedure Name Priority Date/Time Associated Diagnosis Comments CLINICAL PATHOLOGY REPORT Routine 01/30/2025 8:43 AM DIGITAL ACCOUNT COORDINATOR EGFR Routine 01/30/2025 8:43 AM DIGITAL ACCOUNT COORDINATOR Multiple myeloma in remission (HCC) COMPREHENSIVE METABOLIC PANEL Routine 01/30/2025 8:43 AM DIGITAL ACCOUNT COORDINATOR Multiple myeloma in remission (HCC) IGA Routine 01/30/2025 8:43 AM DIGITAL ACCOUNT COORDINATOR Multiple myeloma in remission (HCC) IGG Routine 01/30/2025 8:43 AM DIGITAL ACCOUNT COORDINATOR Multiple myeloma in remission (HCC) IGM Routine 01/30/2025 8:43 AM DIGITAL ACCOUNT COORDINATOR Multiple myeloma in remission (HCC) IMMUNOGLOBULIN FREE LIGHT CHAINS Routine 01/30/2025 8:43 AM DIGITAL ACCOUNT COORDINATOR Multiple myeloma in remission (HCC) LACTATE DEHYDROGENASE Routine 01/30/2025 8:43 AM DIGITAL ACCOUNT COORDINATOR Multiple myeloma in remission (HCC) PROTEIN ELECTROPHORESIS, WITH REFLEX, SERUM Routine 01/30/2025 8:43 AM DIGITAL ACCOUNT COORDINATOR Multiple myeloma in remission (HCC) IMMUNOTYPING Routine 01/30/2025 8:43 AM DIGITAL ACCOUNT COORDINATOR Multiple myeloma in remission (HCC) EGFR Routine 01/30/2025 8:40 AM DIGITAL ACCOUNT COORDINATOR Kidney replaced by transplant DIFFERENTIAL AUTO Routine 01/30/2025 8:4 0 AM DIGITAL ACCOUNT COORDINATOR Kidney replaced by transplant TACROLIMUS LEVEL, TROUGH Routine 01/30/2025 8:40 AM DIGITAL ACCOUNT COORDINATOR Kidney replaced by transplant Encounter for long-term (current) use of medications RENAL FUNCTION PANEL Routine 01/30/2025 8:40 AM DIGITAL ACCOUNT COORDINATOR Kidney replaced by transplant CBC WITH AUTO DIFFERENTIAL Routine 01/30/2025 8:40 AM DIGITAL ACCOUNT COORDINATOR Kidney replaced by transplant SLEEP LAB/STUDY - RESULT 01/10/2025 4:58 PM CDT PULMONARY FUNCTION TEST (PFT) Routine 01/04/2025 9:05 AM CDT ILD (interstitial lung disease) (HCC) PSG (COMPLEX) Routine 12/20/2024 10:00 PM CDT TRAE (obstructive sleep apnea) EGFR Routine 11/30/2024 8:46 AM CDT Kidney replaced by transplant DIFFERENTIAL AUTO Routine 11/30/2024 8:4 6 AM CDT Kidney replaced by transplant TACROLIMUS LEVEL, TROUGH Routine 11/30/2024 8:46 AM CDT Kidney replaced by transplant Encounter for long-term (current) use of medications RENAL FUNCTION PANEL Routine 11/30/2024 8:46 AM CDT Kidney replaced by transplant CBC WITH AUTO DIFFERENTIAL Routine 11/30/2024 8:46 AM CDT Kidney replaced by transplant PSA SCREEN Routine 07/27/2024 8:17 AM CDT Elevated PSA CT ABDOMEN PELVIS WO CONTRAST Schedule Routine, Read Routine (OP Routine) 03/23/2021 12:00 PM DIGITAL ACCOUNT COORDINATOR Kidney replaced by transplant HEPATITIS C ANTIBODY Routine 02/19/2020 4:24 PM DIGITAL ACCOUNT COORDINATOR End stage renal disease (HCC) COLONOSCOPY IMAGES 11/15/2013 from Last 3 Months or Most Recently Relevant to Health Maintenance Results * Immunotyping, serum with interpretation (01/30/2025 8:43 AM DIGITAL ACCOUNT COORDINATOR) Immunofixation See Cl Path Rpt Comment:Testing performed by : [facility], [address] [place] [address]., [id number] Blood 01/30/2025 8:43 AM DIGITAL ACCOUNT COORDINATOR 01/30/2025 3:13 PM DIGITAL ACCOUNT COORDINATOR Srinivasan Baig MD LAB BLOOD ORDER PARISH Final Result [facility] [place] [address] [facility] [place] [address] * Clinical pathology report (01/30/2025 8:43 AM DIGITAL ACCOUNT COORDINATOR) Miscellaneous 01/30/2025 8:4 3 AM DIGITAL ACCOUNT COORDINATOR 01/31/2025 7:48 AM DIGITAL ACCOUNT COORDINATOR Narrative 02/01/2025 1:22 PM DIGITAL ACCOUNT COORDINATOR EPIC results best viewed via link to PDF [facility] Department of Pathology [address] [place] [address] Final Report Note to Patients: This report may contain a detailed description of human tissue sent by a health care provider to the laboratory for pathologic evaluation. The content of this report is essential for diagnosis and may provide important critical findings. This information may be unfamiliar to patients to review without a medical professional present. It is advised that the patient review this report in the presence of a health care provider who can answer questions and explain the details. Patient Name: AYAN PAULINO Address: [address] [place] [address] [place] [address]- Gender: Amanda : 1950 (Age: 74) Service: Location: Hospital #: [id number] Patient Type: [facility] EP ANCILLARY Taken: 01/30/2025 Received: 01/31/2025 Accessioned: 01/31/2025 Physician(s): Srinivasan Baig M.D. [facility] Specimen(s) Received A: Blood (serum) Serum Protein Electrophoresis with Immunofixation/ImmunotypingReported:02/01/2025 Interpretation: Serum Protein Electrophoresis: Normal serum protein electrophoresis pattern. Serum Protein Immunofixation: Normal serum immunofixation study. Comment: Serum Protein Electrophoresis: There are no significant abnormalities of the protein fractions. Serum Protein Immunofixation: Examination of G, A and M heavy chains as well as kappa and lambda light chains reveals no evidence of abnormal peaks. See Epic and/or separate report for protein fraction table. Colt José MD PhDReport Electronically Reviewed and Signed Out By Colt José MD PhD 02/01/2025 13:17:04 The performance characteristics of some immunohistochemical stains, fluorescence in-situ hybridization tests and immunophenotyping by flow cytometry cited in this report (if any) were determined by the Surgical Pathology Department at [facility] as part of an ongoing software quality test engineer program and in compliance with federally mandated regulations drawn from the Clinical Laboratory Improvement Act of 1988 (CLIA '88). Some of these tests rely on the use of analyte specific reagents and are subject to specific labeling requirements by the US Food and Drug Administration. Such diagnostic tests may only be performed in a facility that is certified by the Department of Health and Human Services as a high complexity laboratory under CLIA '88. The FDA has determined that such clearance or approval is not necessary. This test is used for clinical purposes. It should not be regarded as investigational or for research. Nevertheless, federal rules concerning the medical use of analyte specific reagents require that the following disclaimer be attached to the report: This test was developed and its performance characteristics determined by the Surgical Pathology Department [facility]. It has not been cleared or approved by the U. S. Food and Drug Administration. REPORT IMAGES AND SCANNED DOCUMENTS, IF INCLUDED, ONLY VIEWABLE IN PDF VERSION OF REPORTe o Srinivasan Baig MD LAB PATHOLOGY O RDERABLES Final Result * eGFR (01/30/2025 8:43 AM DIGITAL ACCOUNT COORDINATOR) eGFR 74 >=60 mL/min/1. 73 m2 Comment: Interpretive Data Reference Interval Normal >/= 90 mL/min/1.73m2 Mildly decreased* 60 - 89 mL/min/1.73m2 Mildly to moderately decreased 45 - 59 mL/min/1.73m2 Moderately to severely decreased 30 - 44 mL/min/1.73m2 Severely decreased 15 - 29 mL/min/1.73m2 Kidney Failure < 15 mL/min/1.73m2 *Relative to young adult level Estimated glomerular filtration rate is determined by the 2020 CKD-EPI equation recommended by the National Kidney Foundation (A Unifying Approach to GFR Estimation: Recommendations of the NKF-ASK Task Force on Reassessing the Inclusion of Race in Diagnosing Kidney Disease, JASN 2020). The CKD-EPI equation should not be used for patients with unstable renal function and has not been validated in children and those over 70. Current interpretive data was last reviewed 2021. Testing performed by: [facility], [address] [place] [address]., [id number] Blood 01/30/2025 8:43 AM DIGITAL ACCOUNT COORDINATOR 01/30/2025 3:37 PM DIGITAL ACCOUNT COORDINATOR Srinivasan Baig MD LAB BLOOD ORDER PARISH Final Result [facility] [place] [place] [address] * (ABNORMAL) Immunoglobulin free light chains (01/30/2025 8:43 AM DIGITAL ACCOUNT COORDINATOR) [place]/Lambda ratio 1.20 0.26 - 1.65 Comment:Testing performed by : [facility], [address] [place] [address]., [id number] [place] free light chain 2.85(H) 0.33 - 1.94 mg/dL [facility] ([facility]) Comment: Interpretive Data The [employer] [place] FLC assay procedure was used. Results from different manufacturers or methods may not be comparable. Serial testing should be performed using the same method. Testing performed by: [address] [address] Lambda free light chain 2.32 0.57 - 2.63 mg/dL [facility] ([facility]) Comment: Interpretive Data The [employer] Lambda FLC assay procedure was used. Results from different manufacturers or methods may not be comparable. Serial testing should be performed using the same method. Testing performed by: [address] [address] Blood 01/30/2025 8:43 AM DIGITAL ACCOUNT COORDINATOR 01/30/2025 3:13 PM DIGITAL ACCOUNT COORDINATOR Srinivasan Baig MD LAB BLOOD ORDER PARISH Final Result [facility] [place] [place] [address] * Protein electrophoresis with reflex, serum with interpretation (01/30/2025 8:43 AM DIGITAL ACCOUNT COORDINATOR) Protein, sr 6.2 6.2 - 8.2 g/dL Comment:Testing performed by : [address] [address] Albumin 3.6 3.2 - 5.0 g/dL [facility] ([facility]) Comment:Testing performed by : [address] [address] Alpha-1 globulin 0.2 0.2 - 0.4 g/dL [facility] ([facility]) Comment:Testing performed by : [address] [address] Alpha-2 globulin 0.7 0.5 - 1.0 g/dL [facility] ([facility]) Comment:Testing performed by : [address] [address] Beta-1 globulin 0.4 0.3 - 0.6 g/dL [facility] ([facility]) Comment:Testing performed by : [facility], [address] [place] [address]., [id number] Beta-2 globulin 0.3 0.2 - 0.6 g/dL [facility] ([facility]) Comment:Testing performed by : [facility], [address] [place] [address], [id number] Gamma globulin 0.9 0.5 - 1.7 g/dL [facility] ([facility]) Comment:Testing performed by : [facility], [address] [place] [address], [id number] SPEP interp See Cl Path Rpt [facility] ([facility]) Comment:Testing performed by : [facility], [address] [place] [address], [id number] Blood 01/30/2025 8:43 AM DIGITAL ACCOUNT COORDINATOR 01/30/2025 3:13 PM DIGITAL ACCOUNT COORDINATOR Srinivasan Baig MD LAB BLOOD ORDER PARISH Final Result [facility] [facility] [employer] [place] [address] * Lactate dehydrogenase (LD) (01/30/2025 8:43 AM DIGITAL ACCOUNT COORDINATOR) Lactate dehydrogenase (LDH) 193 100 - 250 Units/L Comment:Testing performed by : [facility], [address] [place] [address], [address] Blood 01/30/2025 8:43 AM DIGITAL ACCOUNT COORDINATOR 01/30/2025 3:13 PM DIGITAL ACCOUNT COORDINATOR Srinivasan Baig MD LAB BLOOD ORDER PARISH Final Result [facility] ([facility]) 1 [facility] [place] [address] * IgA (01/30/2025 8:43 AM DIGITAL ACCOUNT COORDINATOR) Immunoglobulin A 296 70 - 400 mg/dL Comment:Testing performed by : [facility], [address] [place] [address], [address] Blood 01/30/2025 8:43 AM DIGITAL ACCOUNT COORDINATOR 01/30/2025 3:13 PM DIGITAL ACCOUNT COORDINATOR Srinivasan Baig MD LAB BLOOD ORDER PARISH Final Result [facility] ([place]) 1 [facility] [place] [address] * (ABNORMAL) IgM (01/30/2025 8:43 AM DIGITAL ACCOUNT COORDINATOR) Pathologist [facility] Immunoglobulin M 38(L) 40 - 150 mg/dL Comment:Testing performed by : [facility], [address] [place] [address]., [address] Blood 01/30/2025 8:43 AM DIGITAL ACCOUNT COORDINATOR 01/30/2025 3:13 PM DIGITAL ACCOUNT COORDINATOR Srinivasan Baig MD LAB BLOOD ORDER PARISH Final Result Performing Organization Address [facility]/ZIP Co de Phone Number [facility] ([place]) 1 [facility] [place] [address] * IgG (01/30/2025 8:43 AM DIGITAL ACCOUNT COORDINATOR) [facility] Immunoglobulin G 1,034 700 - 1,600 mg/dL Comment:Testing performed by : [facility], [address] [place] [address]., [id number] Blood 01/30/2025 8:43 AM DIGITAL ACCOUNT COORDINATOR 01/30/2025 3:13 PM DIGITAL ACCOUNT COORDINATOR Srinivasan Baig MD LAB BLOOD ORDER PARISH Final Result [facility] ([place]) 1 [place] [address] * Comprehensive metabolic panel (01/30/2025 8:43 AM DIGITAL ACCOUNT COORDINATOR) Pathologist [facility] Sodium 138 135 - 145 mmol/L Comment:Testing performed by : [facility], [address] [place] [address], [place]., [address] Potassium, pl 4.0 3.3 - 4.9 mmol/L [facility] ([facility]) Comment:Testing performed by : [address] [address] Chloride 104 97 - 110 mmol/L [facility] ([facility]) Comment:Testing performed by : [address] [address] CO2 24 22 - 32 mmol/L [facility] ([facility]) Comment:Testing performed by : [address], [address] Anion gap 10 2 - 15 mmol/L [facility] ([facility]) Comment:Testing performed by : [address], [address] BUN 14 6 - 25 mg/dL [facility] ([place]) Comment:Testing performed by : [address], [address] Creatinine 1.06 0.80 - 1.30 mg/dL [facility] ([place]) Comment:Testing performed by : [address], [address] Glucose 97 70 - 199 mg/dL [facility] ([place]) Comment: Interpretive Data Fasting glucose >/= 126 mg/dl is diagnostic for diabetes. Fasting is defined as no caloric intake for at least 8 hours. Fasting glucose between 100 mg/dl to 125 mg/dl is diagnostic of prediabetes. In a patient with classic symptoms of hyperglycemia or hyperglycemic crisis, a random glucose >/= 200 mg/dl is diagnostic for diabetes. In the absence of unequivocal hyperglycemia, results should be confirmed by repeat testing. The classification and Diagnosis of Diabetes Diabetes Care 2021; 46: S19-S40. Current interpretive data was last revised 2022. Testing performed by: [facility], [address] [place] [address]., [address] Calcium 8.9 8.5 - 10.3 mg/dL [facility] ([facility]) Comment:Testing performed by : [address] [address] Bilirubin, total 0.8 0.1 - 1.2 mg/dL [facility] ([facility]) Comment:Testing performed by : [facility], [address], [place]., [address] Protein, pl 6.5 6.5 - 8.5 g/dL [facility] ([facility]) Comment:Testing performed by : [facility], [address] [place] [address]., [address] Albumin 3.9 3.5 - 5.0 g/dL [facility] ([facility]) Comment:Testing performed by : [facility], [address] [place] [address]., [address] Alk phos 51 40 - 130 Units/L [facility] ([facility]) Comment:Testing performed by : [facility], [address] [place] [address], [address] ALT 16 7 - 55 Units/L [facility] ([facility]) Comment:Testing performed by : [facility], [address] [place] [address], [address] AST 25 10 - 50 Units/L [facility] ([facility]) Comment:Testing performed by : [facility], [address] [place] [address], [address] Blood 01/30/2025 8:43 AM DIGITAL ACCOUNT COORDINATOR 01/30/2025 3:13 PM DIGITAL ACCOUNT COORDINATOR us Srinivasan Baig MD LAB BLOOD ORDER PARISH Final Result [facility] ([place]) 1 [facility] [place] [address] * eGFR (01/30/2025 8:40 AM DIGITAL ACCOUNT COORDINATOR) eGFR 71 >=60 mL/min/1. 73 m2 Comment: Interpretive Data Reference Interval Normal >/= 90 mL/min/1.73m2 Mildly decreased* 60 - 89 mL/min/1.73m2 Mildly to moderately decreased 45 - 59 mL/min/1.73m2 Moderately to severely decreased 30 - 44 mL/min/1.73m2 Severely decreased 15 - 29 mL/min/1.73m2 Kidney Failure < 15 mL/min/1.73m2 *Relative to young adult level Estimated glomerular filtration rate is determined by the 2020 CKD-EPI equation recommended by the National Kidney Foundation (A Unifying Approach to GFR Estimation: Recommendations of the NKF-ASK Task Force on Reassessing the Inclusion of Race in Diagnosing Kidney Disease, JASN 2020). The CKD-EPI equation should not be used for patients with unstable renal function and has not been validated in children and those over 70. Current interpretive data was last reviewed 2021. Testing performed by: [facility], [address] [place] [address]., [address] Blood 01/30/2025 8:40 AM DIGITAL ACCOUNT COORDINATOR 01/30/2025 3:36 PM DIGITAL ACCOUNT COORDINATOR us Dick Singh MD LAB BLOOD ORDERABLES Final R esult [facility] ([place]) 1 [facility] [place] [address] * (ABNORMAL) Differential, auto (01/30/2025 8:40 AM DIGITAL ACCOUNT COORDINATOR) Neutrophil abs 5.03 1.50 - 6.50 K/cumm Comment:Testing performed by : [address], [address] Imm gran abs 0.03 0.00 - 0.10 K/cumm [facility] ([facility]) Comment:Testing performed by : [address], [address] Lymphocyte abs 2.30 0.80 - 3.30 K/cumm [facility] ([facility]) Comment:Testing performed by : [address], [address] Monocyte abs 0.89(H) 0.20 - 0.80 K/cumm [facility] ([facility]) Comment:Testing performed by : [address] [address] Eosinophil abs 0.62(H) 0.00 - 0.50 K/cumm [facility] ([facility]) Comment:Testing performed by : [address] [address] Basophil abs 0.13(H) 0.00 - 0.10 K/cumm [facility] ([facility]) Comment:Testing performed by : [address], [address] Neutrophil pct 55.9 % [facility] ([facility]) Comment: Interpretive Data Percent cell count reference ranges are not reported, since discordance with absolute values may lead to misinterpretation of CBC data. Current Interpretive Data was last revised on 2017. Testing performed by: [facility], [address] [place] [address]., [address] Imm gran pct 0.3 % [facility] ([facility]) Comment: Interpretive Data Percent cell count reference ranges are not reported, since discordance with absolute values may lead to misinterpretation of CBC data. Current Interpretive Data was last revised on 2017. Testing performed by: [address] [address] Lymphocyte pct 25.6 % [facility] ([facility]) Comment: Interpretive Data Percent cell count reference ranges are not reported, since discordance with absolute values may lead to misinterpretation of CBC data. Current Interpretive Data was last revised on 2017. Testing performed by: [address], [address] Monocyte pct 9.9 % [facility] ([facility]) Comment: Interpretive Data Percent cell count reference ranges are not reported, since discordance with absolute values may lead to misinterpretation of CBC data. Current Interpretive Data was last revised on 2017. Testing performed by: [address] [address] Eosinophil pct 6.9 % [facility] ([facility]) Comment: Interpretive Data Percent cell count reference ranges are not reported, since discordance with absolute values may lead to misinterpretation of CBC data. Current Interpretive Data was last revised on 2017. Testing performed by: [address] [address] Basophil pct 1.4 % [facility] ([facility]) Comment: Interpretive Data Percent cell count reference ranges are not reported, since discordance with absolute values may lead to misinterpretation of CBC data. Current Interpretive Data was last revised on 2017. Testing performed by: [address], [address] Blood 01/30/2025 8:40 AM DIGITAL ACCOUNT COORDINATOR 01/30/2025 3:32 PM DIGITAL ACCOUNT COORDINATOR Dick Singh MD LAB BLOOD ORDERABLES Final R esult Performing Organization Address City/[facility]/ZIP Co de Phone Number [facility] ([place]) 1 [facility] [place] [address] * Tacrolimus level trough (01/30/2025 8:40 AM DIGITAL ACCOUNT COORDINATOR) [facility] Tacrolimus trough 2.6 ng/mL Comment: Interpretive Data Testing performed by liquid chromatography-tandem mass spectrometry. Therapeutic concentrations vary depending on type of transplanted organ and time elapsed since transplant. Typical trough concentrations range from 5-15 ng/mL. This test was developed and its performance characteristics determined by the [facility] consistent with CLIA requirements. This test has not been cleared or approved by the US Food and Drug administration. Current interpretive data last reviewed 2019. Testing performed by: [facility], [address] [place] [address]., [address] Blood 01/30/2025 8:40 AM DIGITAL ACCOUNT COORDINATOR 01/31/2025 10:22 AM DIGITAL ACCOUNT COORDINATOR Dick Singh MD LAB BLOOD ORDERABLES Final R esult Performing Organization Address [facility] Co de Phone Number [facility] ([place]) 1 [facility] [place] [address] * (ABNORMAL) CBC with auto differential (01/30/2025 8:40 AM DIGITAL ACCOUNT COORDINATOR) [facility] WBC 9.00 3.80 - 9.90 K/cumm Comment:Testing performed by : [facility], [address] [place] [address]., [address] Hgb 15.5 13.0 - 17.5 g/dL [facility] ([place]) Comment:Testing performed by : [address], [address] Hct 46.8 38.9 - 50.3 % [facility] ([place]) Comment:Testing performed by : [address], [address] Plt 191 150 - 400 K/cumm [facility] ([facility]) Comment:Testing performed by : [facility], [address] [place] [address], [address] MPV 10.0 9.1 - 12.3 fL [facility] ([facility]) Comment:Testing performed by : [facility], [address] [place] [address], [address] RBC 4.81 4.30 - 5.80 M/cumm [facility] ([facility]) Comment:Testing performed by : [facility], [address] [place] [address], [address] MCV 97.3(H) 81.3 - 96.4 fL [facility] ([facility]) Comment:Testing performed by : [address], [address] MCH 32.2 27.1 - 33.3 pg [facility] ([facility]) Comment:Testing performed by : [address], [address] MCHC 33.1 32.3 - 35.7 g/dL [facility] ([facility]) Comment:Testing performed by : [address], [address] RDW CV 15.7(H) 11.1 - 14.9 % [facility] ([facility]) Comment:Testing performed by : [address], [address] RDW SD 56.5(H) 35.7 - 48.1 fL [facility] ([facility]) Comment:Testing performed by : [address], [address] NRBC abs 0.00 0.00 - 0.01 K/cumm [facility] ([facility]) Comment:Testing performed by : [address], [address] Blood 01/30/2025 8:40 AM DIGITAL ACCOUNT COORDINATOR 01/30/2025 3:32 PM DIGITAL ACCOUNT COORDINATOR us Dick Singh MD LAB BLOOD ORDERABLES Final R esult [facility] ([facility]) 1 [facility] [place] [address] * Renal function panel (01/30/2025 8:40 AM DIGITAL ACCOUNT COORDINATOR) Sodium 138 135 - 145 mmol/L Comment:Testing performed by : [address] [address] Potassium, pl 4.2 3.3 - 4.9 mmol/L [facility] ([facility]) Comment:Testing performed by : [address], [address] Chloride 103 97 - 110 mmol/L [facility] ([facility]) Comment:Testing performed by : [address], [address] CO2 23 22 - 32 mmol/L [facility] ([facility]) Comment:Testing performed by : [address], [address] Anion gap 12 2 - 15 mmol/L [facility] ([facility]) Comment:Testing performed by : [address], [address] BUN 14 6 - 25 mg/dL [facility] ([facility]) Comment:Testing performed by : [address], [address] Creatinine 1.09 0.80 - 1.30 mg/dL [facility] ([facility]) Comment:Testing performed by : [address], [address] Glucose 96 70 - 199 mg/dL [facility] ([facility]) Comment: Interpretive Data Fasting glucose >/= 126 mg/dl is diagnostic for diabetes. Fasting is defined as no caloric intake for at least 8 hours. Fasting glucose between 100 mg/dl to 125 mg/dl is diagnostic of prediabetes. In a patient with classic symptoms of hyperglycemia or hyperglycemic crisis, a random glucose >/= 200 mg/dl is diagnostic for diabetes. In the absence of unequivocal hyperglycemia, results should be confirmed by repeat testing. The classification and Diagnosis of Diabetes Diabetes Care 2021; 46: S19-S40. Current interpretive data was last revised 2022. Testing performed by: [address], [address] Calcium 9.2 8.5 - 10.3 mg/dL [facility] ([facility]) Comment:Testing performed by : [address], [place]., [address] Phosphorus, pl 2.7 2.3 - 4.5 mg/dL [facility] ([facility]) Comment:Testing performed by : [facility], [address] [place] [address]., [address] Albumin 3.8 3.5 - 5.0 g/dL [facility] ([facility]) Comment:Testing performed by : [facility], [address] [place] [address]., [address] Blood 01/30/2025 8:40 AM DIGITAL ACCOUNT COORDINATOR 01/30/2025 3:15 PM DIGITAL ACCOUNT COORDINATOR us Dick Singh MD LAB BLOOD ORDERABLES Final R esult [facility] ([place]) 1 [facility] [place] [address] * SLEEP LAB/STUDY - RESULT (01/10/2025 4:58 PM CDT) us Provider Scanning Final Result * Pulmonary Function Test - (01/04/2025 9:05 AM CDT) FVC PRE 3.48 L [facility] FVC %PRE PRED 73 % [facility] FEV1 PRE 2.94 L [facility] FEV1 %PRE PRED 84 % [facility] FEV1/FVC PRE 84.5 % [facility] Anatomical Region Laterality Modality PFT 01/04/2025 8:42 AM CDT Narrative 01/07/2025 8:24 AM CDT Table formatting from the original result was not included. [facility] Division of Pulmonary & Critical Care Medicine [address] [place] [address]; [place] [address]; [place] [address]; [phone] Pulmonary Function Laboratory Pulmonary Stress Test Simple/Oxygen Assessment Patient: Ayan Paulino Date: 01/04/2025 : 1950 Ht: 75 IN Wt: 207 LBS Time (min) Distance (ft)/ De Souza O2 L/M SpO2 HR Mima* BP FEV1 % Pred Rest: RA 100 68 0 131/76 2.94 84 % Walk/Bike: 1 RA 99 77 0 2 RA 98 80 0 3 RA 98 79 0 4 RA 97 80 0 5 RA 97 80 0 6 min 0 sec RA 98 82 0 Recovery: 1 RA 99 74 0 133/84 2.93 84% 3 RA 100 70 0 *Mima rate of perceived exertion (1-10 dyspnea scale) José Miguel, CHEST 2003; [id number] Walk Test Summary: Six Minute Walk Distance: 1200 ft Six-minute Walk Work [distance (m) x body wt (kg)]: 02546 kg.m (normal >60,000kg.m) Oxygen required to maintain SpO2 greater than 90% during six minutes of walkin L/M Comments: O2A- 0 STOPS Interpretation: Breathing room air, SpO2 is normal at rest and during exercise sufficient to increase pulse, SpO2 falls but remains normoxemic . On this basis, SpO2 is adequate at rest breathing room air and while walking breathing room air. This level of exercise is associated with no significant change of FEV1. By signing this report, the attending pulmonary physician certifies that he/she has personally reviewed and interpreted the graphic and numerical data associated with this pulmonary function study and has reviewed and /or edited a preliminary draft report and agrees with the written final report. PFT performed at:->[facility] Adult PFT Lab- [id number] Procedure:->Spirometry Procedure:->Oxygen Assessment Titration Pulmonary Function Test Interpretation SPIROMETRY: The FEV1 and FVC are reduced in a pattern suggestive of a restrictive abnormality. The inspiratory loop is appropriate for the expiratory flow abnormality. Impression: There is a mild restrictive ventilatory defect. However, measurement of lung volumes is suggested to confirm this if clinically indicated. Compared with most recent study, there has been no significant interval change. The attending pulmonary physician certifies a physician presence in the [facility] during the administration of aerosolized bronchodilator. The attending pulmonary physician certifies that he/she has reviewed and interpreted the graphic and numerical data of this pulmonary function study and agrees with the written final report. The lower limit of normal for PaO2 and %HbO2 is age dependent. However, the [facility] Pulmonary Function Laboratory defines hypoxemia as a PaO2 <56 mm Hg or a %HbO2 <89%. Starting on March of 2024 the [facility] Pulmonary Function Laboratory utilizes race neutral GLI Global normative equations. us Nasim Hanson MD PFT ORDERABLES F inal Result * PSG (COMPLEX) (12/20/2024 10:00 PM CDT) Narrative Suzanne Quinones MD PhD - 12/20/2024 10:00 PM CDT Suzanne Quinones MD PhD 12/21/2024 12:59 PM PSG-Sleep Provider Use Only Date/Time: 12/20/2024 10:00 PM Performed by: Szuanne Quinones MD PhD Authorized by: Nenita Arenas NP us Nenita Arenas [facility] ORDERABLES Usha l Result * eGFR (11/30/2024 8:46 AM CDT) eGFR 75 >=60 mL/min/1. 73 m2 Comment: Interpretive Data Reference Interval Normal >/= 90 mL/min/1.73m2 Mildly decreased* 60 - 89 mL/min/1.73m2 Mildly to moderately decreased 45 - 59 mL/min/1.73m2 Moderately to severely decreased 30 - 44 mL/min/1.73m2 Severely decreased 15 - 29 mL/min/1.73m2 Kidney Failure < 15 mL/min/1.73m2 *Relative to young adult level Estimated glomerular filtration rate is determined by the 2020 CKD-EPI equation recommended by the National Kidney Foundation (A Unifying Approach to GFR Estimation: Recommendations of the NKF-ASK Task Force on Reassessing the Inclusion of Race in Diagnosing Kidney Disease, JASN 2020). The CKD-EPI equation should not be used for patients with unstable renal function and has not been validated in children and those over 70. Current interpretive data was last reviewed 2021. Testing performed by: [facility], [id number] [place] [address], [place]., [address] Blood 11/30/2024 8:46 AM CDT 11/30/2024 2:48 PM CDT us Dick Singh MD LAB BLOOD ORDERABLES Final R esult [facility] ([facility]) 1 [facility] [place] [address] * (ABNORMAL) Differential, auto (11/30/2024 8:46 AM CDT) Neutrophil abs 4.34 1.50 - 6.50 K/cumm Comment:Testing performed by : [facility], [address] [place] [address]., [address] Imm gran abs 0.04 0.00 - 0.10 K/cumm [facility] ([facility]) Comment:Testing performed by : [facility], [address] [place] [address]., [address] Lymphocyte abs 2.21 0.80 - 3.30 K/cumm [facility] ([facility]) Comment:Testing performed by : [facility], [address] [place] [address]., [address] Monocyte abs 0.81(H) 0.20 - 0.80 K/cumm [facility] ([facility]) Comment:Testing performed by : [facility], [address] [place] [address], [address] Eosinophil abs 0.51(H) 0.00 - 0.50 K/cumm [facility] ([facility]) Comment:Testing performed by : [facility], [address] [place] [address]., [address] Basophil abs 0.13(H) 0.00 - 0.10 K/cumm [facility] ([facility]) Comment:Testing performed by : [address], [address] Neutrophil pct 54.0 % [facility] ([facility]) Comment: Interpretive Data Percent cell count reference ranges are not reported, since discordance with absolute values may lead to misinterpretation of CBC data. Current Interpretive Data was last revised on 2017. Testing performed by: [address] [address] Imm gran pct 0.5 % [facility] ([place]) Comment: Interpretive Data Percent cell count reference ranges are not reported, since discordance with absolute values may lead to misinterpretation of CBC data. Current Interpretive Data was last revised on 2017. Testing performed by: [address], [address] Lymphocyte pct 27.5 % [facility] ([facility]) Comment: Interpretive Data Percent cell count reference ranges are not reported, since discordance with absolute values may lead to misinterpretation of CBC data. Current Interpretive Data was last revised on 2017. Testing performed by: [facility], [address] [place] [address]., [address] Monocyte pct 10.1 % [facility] ([facility]) Comment: Interpretive Data Percent cell count reference ranges are not reported, since discordance with absolute values may lead to misinterpretation of CBC data. Current Interpretive Data was last revised on 2017. Testing performed by: [facility], [address] [place] [address]., [address] Eosinophil pct 6.3 % [facility] ([place]) Comment: Interpretive Data Percent cell count reference ranges are not reported, since discordance with absolute values may lead to misinterpretation of CBC data. Current Interpretive Data was last revised on 2017. Testing performed by: [address] [address] Basophil pct 1.6 % [facility] ([place]) Comment: Interpretive Data Percent cell count reference ranges are not reported, since discordance with absolute values may lead to misinterpretation of CBC data. Current Interpretive Data was last revised on 2017. Testing performed by: [address] [address] Blood 11/30/2024 8:46 AM CDT 11/30/2024 2:06 PM CDT us Dick Singh MD LAB BLOOD ORDERABLES Final R esult [facility] ([place]) 1 [facility] Department of Laboratories [place], [place] [id number] * Tacrolimus level trough (11/30/2024 8:46 AM CDT) Tacrolimus trough 3.8 ng/mL Comment: Interpretive Data Testing performed by liquid chromatography-tandem mass spectrometry. Therapeutic concentrations vary depending on type of transplanted organ and time elapsed since transplant. Typical trough concentrations range from 5-15 ng/mL. This test was developed and its performance characteristics determined by the [facility] consistent with CLIA requirements. This test has not been cleared or approved by the US Food and Drug administration. Current interpretive data last reviewed 2019. Testing performed by: [facility], [address] [place]., [address] Blood 11/30/2024 8:46 AM CDT 12/01/2024 5:45 PM CDT us Dick Singh MD LAB BLOOD ORDERABLES Final R esult [facility] ([place] 1 [facility] [place] [address] * (ABNORMAL) CBC with auto differential (11/30/2024 8:46 AM CDT) WBC 8.04 3.80 - 9.90 K/cumm Comment:Testing performed by : [address], [address] Hgb 15.2 13.0 - 17.5 g/dL [facility] ([facility]) Comment:Testing performed by : [address], [address] Hct 46.6 38.9 - 50.3 % [facility] ([facility]) Comment:Testing performed by : [address], [address] Plt 184 150 - 400 K/cumm [facility] ([facility]) Comment:Testing performed by : [address], [address] MPV 10.3 9.1 - 12.3 fL [facility] ([facility]) Comment:Testing performed by : [address], [address] RBC 4.88 4.30 - 5.80 M/cumm [facility] ([facility]) Comment:Testing performed by : [address], [address] MCV 95.5 81.3 - 96.4 fL [facility] ([facility]) Comment:Testing performed by : [address] [place]., [address] MCH 31.1 27.1 - 33.3 pg [facility] ([facility]) Comment:Testing performed by : [facility], [address] [place] [address], [address] MCHC 32.6 32.3 - 35.7 g/dL [facility] ([facility]) Comment:Testing performed by : [facility], [address] [place] [address], [address] RDW CV 15.6(H) 11.1 - 14.9 % [facility] ([facility]) Comment:Testing performed by : [facility], [address] [place] [address], [id number] RDW SD 55.1(H) 35.7 - 48.1 fL [facility] ([facility]) Comment:Testing performed by : [facility], [address] [place] [address], [address] NRBC abs 0.00 0.00 - 0.01 K/cumm [facility] ([facility]) Comment:Testing performed by : [address], [address] Blood 11/30/2024 8:46 AM CDT 11/30/2024 2:06 PM CDT Dick Singh MD LAB BLOOD ORDERABLES Final R esult [facility] (RADHA) 1 [facility] [place] [address] * Renal function panel (11/30/2024 8:46 AM CDT) Sodium 139 135 - 145 mmol/L Comment:Testing performed by : [address], [address] Potassium, pl 4.1 3.3 - 4.9 mmol/L [facility] ([facility]) Comment:Testing performed by : [address], [address] Chloride 104 97 - 110 mmol/L [facility] ([facility]) Comment:Testing performed by : [address], [address] CO2 24 22 - 32 mmol/L [facility] (RADHA) Comment:Testing performed by : [facility], [address] [place] [address]., [id number] Anion gap 11 2 - 15 mmol/L [facility] ([facility]) Comment:Testing performed by : [facility], [address] [place] [address]., [address] BUN 13 6 - 25 mg/dL [facility] ([facility]) Comment:Testing performed by : [address], [address] Creatinine 1.04 0.80 - 1.30 mg/dL [facility] (RADHA) Comment:Testing performed by : [address], [address] Glucose 101 70 - 199 mg/dL [facility] ([facility]) Comment: Interpretive Data Fasting glucose >/= 126 mg/dl is diagnostic for diabetes. Fasting is defined as no caloric intake for at least 8 hours. Fasting glucose between 100 mg/dl to 125 mg/dl is diagnostic of prediabetes. In a patient with classic symptoms of hyperglycemia or hyperglycemic crisis, a random glucose >/= 200 mg/dl is diagnostic for diabetes. In the absence of unequivocal hyperglycemia, results should be confirmed by repeat testing. The classification and Diagnosis of Diabetes Diabetes Care 202; 46: S19-S40. Current interpretive data was last revised 2022. Testing performed by: [facility], [address] [place] [address]., [address] Calcium 9.3 8.5 - 10.3 mg/dL [facility] ([facility]) Comment:Testing performed by : [address] [address] Phosphorus, pl 2.8 2.3 - 4.5 mg/dL [facility] (RADHA) Comment:Testing performed by : [address] [address] Albumin 3.6 3.5 - 5.0 g/dL [facility] ([facility]) Comment:Testing performed by : [address] [address] Blood 11/30/2024 8:46 AM CDT 11/30/2024 2:06 PM CDT us Dick Singh MD LAB BLOOD ORDERABLES Final R esult [facility] [place] [place]) 1 [facility] [place] [address] * PSA screen (07/27/2024 8:17 AM CDT) PSA-Total 3.13 <=6.20 ng/mL Comment: Interpretive Data AGE SEX REFERENCE INTERVAL 0 minutes-150 years Female None 0 minutes-49 years Male None 50-59 years Male 0-3.90 60-69 years Male 0-5.40 70-79 years Male 0-6.20 80-150 years Male 0-6.20 The [place] PSA Total assay procedure was used. Results from different manufacturers or methods may not be comparable. Serial testing should be performed using the same method. Current interpretive data last revised 21. Testing performed by: [facility], [address] [place] [address], [facility] Blood 07/27/2024 8:17 AM CDT 07/27/2024 3:25 PM CDT us Ivonne Vazquez NP LAB BLOOD ORDERABLES Fi nal Result Performing Organization Address [facility] Co de Phone Number [facility] [place]) 1 [facility] [place] [address] * CT Abdomen Pelvis WO Contrast (03/23/2021 12:00 PM DIGITAL ACCOUNT COORDINATOR) Anatomical Region Laterality Modality Body N/A Computed Tomogra phy 03/23/2021 12:3 1 PM DIGITAL ACCOUNT COORDINATOR Narrative 03/23/2021 12:38 PM DIGITAL ACCOUNT COORDINATOR EXAM DESCRIPTION: CT ABDOMEN PELVIS WO CONTRAST REASON FOR STUDY: Burning sensation with urination and right groin pain. History of right kidney transplant a year ago. Says he has been having this pain ever since transplant TECHNIQUE: CT scan of the abdomen and pelvis performed without intravenous and without oral contrast using helical scanning technique. Reconstructed coronal and sagittal MPR images reviewed. All images stored on PACS. Automated exposure control was used as a dose optimization technique for this examination. COMPARISON: 09/17/2019 FINDINGS: The sensitivity for detection of visceral lesions is diminished without the use of intravenous contrast. LOWER CHEST: Mild peripheral interstitial thickening are seen in the lung bases, mildly progressed from prior study. No confluent consolidation or pleural effusion. LIVER: Normal size. No identified cystic or solid masses. A couple too small to characterize cystic lesions again seen in segment 4A and 8 of the liver, unchanged and most likely cysts. GALLBLADDER: No stones identified. No wall thickening or inflammatory changes. BILE DUCTS: No intrahepatic or extrahepatic ductal dilatation. SPLEEN: Normal size. No focal lesions. PANCREAS: No identified cystic or solid masses. No significant calcifications. No adjacent inflammation or peripancreatic fluid collections. Pancreatic duct not dilated. ADRENALS: Normal. KIDNEYS/URINARY TRACT: Atrophy of bilateral flandreau kidneys again seen compatible with chronic renal failure. A too small to characterize cystic lesion again seen arising from the lateral midpole of the a trophic right kidney, unchanged, likely a cyst. No identified significant cystic or solid masses. No stones. No hydronephrosis or hydroureter. Urinary bladder is unremarkable. GI: No dilated bowel loops. No obvious wall thickening. Normal appendix. No significant diverticular disease. PERITONEUM: No ascites or free air. RETROPERITONEUM: No mass or adenopathy. REPRODUCTIVE: Mild prostate enlargement is stable. VASCULATURE: Mild aortoiliac atherosclerotic calcification. No abdominal aortic aneurysm. MUSCULOSKELETAL: Mild spinal degenerative endplate changes of the lumbar spine and moderate degenerative disc space narrowing at L5/S1 redemonstrated, not substantially changed. No suspicious osseous lesions or acute fractures. OTHER: A right lower quadrant transplant kidney is new from prior study. There is nonspecific mild perinephric fat stranding. The collecting system and ureter of the transplant kidney is mildly distended to the level of the urinary bladder. A small fat containing umbilical hernia has mildly increased in size. IMPRESSION: 1. Mild dilatation of the collecting system and ureter of the right lower quadrant transplant kidney, which is likely related to postsurgical change. Mild perinephric fat stranding is nonspecific. Recommend correlation with urinalysis to exclude transplant renal infection. 2. Small fat containing umbilical hernia has slightly increased in size. 3. Mild peripheral reticulation of pulmonary interstitium in the visualized lung bases has mildly progressed, suspicious for progression of mild nonspecific fibrosis or underlying interstitial lung disease. THIS IS AN ELECTRONICALLY VERIFIED FINAL REPORT 03/23/2021 12:38 PM - Electronically signed by Hermelindo Johnston M.D. ML: ML Report ID: [id number] Reading Location: [id number] Procedure Note Hermelindo Johnston MD - 03/23/2021 EXAM DESCRIPTION: CT ABDOMEN PELVIS WO CONTRAST REASON FOR STUDY: Burning sensation with urination and right groin pain. History of right kidney transplant a year ago. Says he has been havingthis pain ever since transplant TECHNIQUE: CT scan of the abdomen and pelvis performed without intravenousand without oral contrast using helical scanning technique. Reconstructed coronal and sagittal MPR images reviewed. All images stored on PACS. Automated exposure control was used as a dose optimization technique forthis examination. COMPARISON: 09/17/2019 FINDINGS: The sensitivity for detection of visceral lesions is diminished withoutthe use of intravenous contrast. LOWER CHEST: Mild peripheral interstitial thickening are seen in thelung bases, mildly progressed from prior study. No confluent consolidation or pleural effusion. LIVER: Normal size. No identified cystic or solid masses. A coupletoo small to characterize cystic lesions again seen in segment 4A and 8 of the liver, unchanged and most likely cysts. GALLBLADDER: No stones identified. No wall thickening or inflammatory changes. BILE DUCTS: No intrahepatic or extrahepatic ductal dilatation. SPLEEN: Normal size. No focal lesions. PANCREAS: No identified cystic or solid masses. No significant calcifications. No adjacent inflammation or peripancreatic fluidcollections. Pancreatic duct not dilated. ADRENALS: Normal. KIDNEYS/URINARY TRACT: Atrophy of bilateral flandreau kidneys again seen compatible with chronic renal failure. A too small to characterize cystic lesion again seen arising from the lateral midpole of the a trophic right kidney, unchanged, likely a cyst. No identified significant cystic orsolid masses. No stones. No hydronephrosis or hydroureter. Urinary bladder is unremarkable. GI: No dilated bowel loops. No obvious wall thickening. Normalappendix. No significant diverticular disease. PERITONEUM: No ascites or free air. RETROPERITONEUM: No mass or adenopathy. REPRODUCTIVE: Mild prostate enlargement is stable. VASCULATURE: Mild aortoiliac atherosclerotic calcification. Noabdominal aortic aneurysm. MUSCULOSKELETAL: Mild spinal degenerative endplate changes of the lumbar spine and moderate degenerative disc space narrowing at L5/Z2bjueskkjtcxopg, not substantially changed. No suspicious osseous lesions or acutefractures. OTHER: A right lower quadrant transplant kidney is new from prior study. There is nonspecific mild perinephric fat stranding. The collectingsystem and ureter of the transplant kidney is mildly distended to the level ofthe urinary bladder. A small fat containing umbilical hernia has mildly increased in size. IMPRESSION: 1. Mild dilatation of the collecting system and ureter of the rightlower quadrant transplant kidney, which is likely related to postsurgicalchange. Mild perinephric fat stranding is nonspecific. Recommend correlation with urinalysis to exclude transplant renal infection. 2. Small fat containing umbilical hernia has slightly increased insize. 3. Mild peripheral reticulation of pulmonary interstitium in thevisualized lung bases has mildly progressed, suspicious for progression of mild nonspecific fibrosis or underlying interstitial lung disease. THIS IS AN ELECTRONICALLY VERIFIED FINAL REPORT 03/23/2021 12:38 PM - Electronically signed by Hermelindo Johnston M.D. ML: ML Report ID: [id number] Reading Location: [id number] Chelsea Feliciano MD IMG CT PROCEDURES Final Result * Hepatitis C antibody (02/19/2020 4:24 PM DIGITAL ACCOUNT COORDINATOR) Hep C Ab Nonreactive Nonreactive [facility] Comment:Antibodies to HCV no t detected. Does NOT exclude the possibility of recent exposure to HCV. Blood specimen (specimen) 02/19/2020 4:24 PM DIGITAL ACCOUNT COORDINATOR 02/19/2020 6:29 PM DIGITAL ACCOUNT COORDINATOR Josue Espinoza MD LAB MICROBIOLOGY - GENERAL ORDERABLES Edited Result - Final [facility] Department [place] [address] * COLONOSCOPY IMAGES (11/15/2013) Anatomical Region Laterality Modality Other Narrative 11/15/2013 Ordered by an unspecified provider. Historical Provider GI PROCEDURE ORDERABLES F inal Result from Last 3 Months or Most Recently Relevant to Health Maintenance Insurance MEDICARE [facility] [place] [id number] MEDICARE [facility] MEDICARE SUPPLEMENT MEDICARE [facility] TRADITIONAL MEDICARE [facility] MEDICARE SUPPLEMENT Advance Directives For more information, please contact: [phone] Documents on File Type Date Recorded Patient Lapper Expl anation ADVANCE DIRECTIVE 11/22/2017 9:30 AM POWER OF GYNECOLOGIST * Full Code (Latest Code Status on File) Date Activated Date Inactivated Comments 08/31/2024 9:38 AM 09/03/2024 7:48 PM * Full Code Date Activated Date Inactivated Comments 03/04/2020 5:02 PM 03/07/2020 6:21 PM * Full Code Date Activated Date Inactivated Comments 03/04/2020 7:19 AM 03/04/2020 5:01 PM * Full Code Date Activated Date Inactivated Comments 11/08/2019 9:52 PM 11/10/2019 4:01 PM * Full Code Date Activated Date Inactivated Comments 06/12/2018 2:11 PM 06/17/2018 5:11 PM Care Teams Certified Court/Medical Interpreter Relationship Specialty Start Date End Date Brad Juarez MD [address] [address] PCP - General 07/07/17 Surya Christine MD [address] [place] [address] Referring Physician Nephrology 10/02/19 Srinivasan Baig MD [address] [place] [address] Medical Oncologist/Rocket Scientist Medical Oncology 11/12/19 Pearl Muller, calibration checkerUniversity Dean 02/11/25
--- OUTSIDE RECORDS SUMMARY | 2025-02-13 00:05 | XMS_ITS | Encounter Summary ---
Author Organization [facility] Address [address] [facility] [place] [address] Care Team Providers Care Corporate Buyer Name Role Phone Peter Cooper MD Unavailable [phone] Brad Juarez MD Primary Care Provider [phone] Encounter Details Date Type Department Care Team (Late st Contact Info) Description 10/20/2015 Therapy Visit EXTERNAL NON-[facility] [place] [address] [place], [place] [id number] Social History Tobacco Use Types Packs/Day Years Used Date Smoking Tobacco: Former Cigarettes 1 20 0 03/14/1970 - 03/14/1990 Alcohol Use Standard Drinks/Week Comments Yes 6.7 (1 standard drink = 0.6 oz p ure alcohol) Sex and Gender Information Value Date Recorded Sex Assigned at Not on file 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
--- OUTSIDE RECORDS SUMMARY | 2025-02-13 00:05 | XMS_ITS | Encounter Summary ---
Author Organization [facility] Address [address] [place] [address] Phone Care Team Providers Care Pecan Gatherer Name Role Phone Brad Juarez MD Primary Care Provider [phone] Surya Christine MD Unavailable [phone] Srinivasan Baig MD Unavailable Kim Cazares RN Unavailable [phone] aVhid Gerardo RN Unavailable [phone] Pearl Muller RN Unavailable Unavailabl e Encounter Details Date Type Department Care Team (Late st Contact Info) Description 10/24/2017 Social Work [facility] Bone Marrow Transplant [address] [facility] 7th Floor, [place] [address] Catalina Mckeon Social History Tobacco Use Types Packs/Day Years Used Date Smoking Tobacco: Former Cigarettes 0 09/20/1977 - 09/20/1989 Smokeless Tobacco: Former Snuff Quit: 09/20/1974 Comments:ONLY a social smoke r Alcohol Use Standard Drinks/Week Comments Yes 0 (1 standard drink = 0.6 oz pur e alcohol) Occasional Sex and Gender Information Value Date Recorded Sex Assigned at Not on file 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 Information was obtained via phone interview with patient and from medical record. Psychosocial evaluation completed on October 20, 2017 with ELIZABETH Conde, CATEGORY DEVELOPMENT ANALYST. Collaboration/Consultation: Per consult, patient has a diagnosis of multiple myeloma (MM) and is pursuing a stem cell transplant as treatment of the MM. Information will be discussed with BMT team. Living Arrangements: Patient is currently residing with his in [place], [place], which is approximately 33 miles from the hospital. During the patient???s recovery period the patient will reside at patient???s home near the [place], [place] area. Smoking: The patient reports that he quit tobacco se in 1989. Prior to that time he smoked cigarettes and did chew tobacco in his young adult years. Drug/ETHO Abuse: Patient denies any past or current history of alcohol or drug abuse. History of Psychiatric Disorders: Patient denies any past or current history of anxiety, depression, or other mental health needs. Additional Psychosocial History: Patient is a 67-year old male. The patient has been to his (Nallely) for over 47 years. They have three adult sons who all live within two hours of him. He has seven grandchildren. The patient is currently not a caregiver for anyone, but his does care for her sister???s finances andother executive needs. The patient is independent in his ADLs, and does not use any assistive devices. The patient is insured by Medicare with a Blue Cross supplement and a part D plan. The patient anticipates no changes to his insurance in the next year. The patient transports to appointments via personal vehicle. The patient denies any financial concerns at this time. The patient denies a legalhistory. The patient is not a . The patient identifies as belonging to the [employer] allie tradition, and does identify spirituality as a source of support for him. The patient enjoys playing golf and camping in his trailer. Adjustment to Illness Patient was diagnosed with MM in 06/2017. The patient has been open to all treatment options, including a stem cell transplant. The patient reports that his and various family members will be hiscaregivers after transplant. Patient reports that he understands the transplant process, and desires to have one in order to extend his life. The patient reports that his family is coping well at this time. Through the course of our work I determined that patient/spouse/family possesses the skill and ability to provide and monitor the care of the patient when she returns home. Patient/spouse/family has the capacity to provide/monitor/arrange for the care of the patient. Finally, we determined that patient/spouse/family has the knowledge of available resources and that combining them with their existing resources will suffice to sustain and care for the patient when she returns home. The treatment team is aware of this information. All are in agreement with the aftercare plan. Problems/Reasons for Intervention: 1) Psychosocial evaluation 2) AD/DPOA 3) Patient compliance for the caregiver post-transplant Goals: 1) Assess psychosocial stability for transplant. 2) Increase awareness of making decisions for health care. 3) Increase awareness of the role of the caregiver post-transplant. Action Plan: 1) Psychosocial evaluation completed. 2) Patient currently has an AD/DPOA. He named his spouse, Nallely Paulino, as his DPOA as needed. 3) Patient was given the education about the role of the caregiver post- transplant. The patient agrees to have a caregiver after transplant for 04/10 during the recovery period. The patient understands that they recovery period for autologous transplant includes the first two weeks following discharge from the patient???s admission for the procedure. Impression: The patient, a 67-year old male, was diagnosed with MM in 06/2017. called the patient on October 20, 2017 per transplant protocol, for the purpose of psychosocial assessment as a transplant candidate. The patient was pleasant, cooperative, and forthcoming to evaluation. The patient reported thatis and various family members will be his caregivers post-transplant. Patient appears to have adequate caregiver support for transplant. Patient appears to have good understanding of his illnessand treatment plan. No issues with medical compliance are anticipated. Patient was given contact information for social work if additional needs or concerns are identified. Patient agrees with plan of care and with social work role. Patient does appear capable of managing transplant regimen, and isconsidered to be an appropriate candidate for a stem cell transplant from psychosocial perspective. documented in this encounter Plan of Treatment Not on [...] documented as of this encounter Care Teams Pecan Gatherer Relationship Specialty Start Date End Date Brad Juarez MD [address] [address] PCP - General 07/07/17 Surya Christine MD [address] [facility] [address] [place], [place] [id number] [place] [address] Referring Physician Nephrology 10/02/19 Srinivasan Baig MD [address] [facility] [address] [place] [address] Medical Oncologist/Business Owner/Engineer Medical Oncology 11/12/19 Kim Cazares, MARY LOU Rechecker 03/04/20 Vahid Gerardo, MARY LOU [address] [facility] [address] [facility] [place], [place] [address] Rechecker 03/04/20 Pearl Muller, marketing communications specialistRechecker 02/11/25 documented as of this encounter
--- OUTSIDE RECORDS SUMMARY | 2025-02-13 00:05 | XMS_ITS ---
Author Organization [facility] Address [address] [place] [address] Care Team Providers Care Social Organization Professor Name Role Phone Brad Juarez MD Primary Care Provider [phone] Surya Christine MD Unavailable [phone] Srinivasan Baig MD Unavailable Pearl Muller RN Unavailable Unavailabl e Transplant Episode Kidney Recipient [facility] ([place], [place]) - [facility] Organ Received: Left Kidney Transplanted on 03/04/2020 Marked as Active Follow-up on 03/04/2020 Reason: Transplanted at [facility] Kidney CoordinatorPearl Muller RN Phone: N/A Fax: N/A Email: N/A Donor Information Organ ABO Source Meets Risk Criteria HLA Match Mismatches Cross Match Left Kidney Transplanted O Positive Live A: B: DR: Left Kidney Donor Serology Results Anti-CMV CMV IgG: Negative EBV IgG EBV VCA IgG: Positive Anti-HBcAb HBC Total: Nonreactive HBsAg HBsAg: Nonreactive HBV DNA No results on file Anti-HCV HCV Ab: Nonreactive Anti-HIV I/II HIV Ag/Ab Combo Assay: Nonreactive Anti-HTLV I/II No results on file RPR/VDRL RPR: Nonreactive EBV IgM No results on file HBsAb HBsAb: Nonreactiv e EBNA No results on file SARS CoV-2 SARS CoV-2 RNA: Not Detected Care Team Name Role Phone Fax Email Pearl Muller RN Kidney Coordinator N/A N/A N/A Kim Cazares RN Civil Engineer [phone] N/A N/A Maura Colon Construction Skills Teacher [phone] N/A N/A Lisandro Schmitt, RN Secondary Coordinator [phone] N/A N/A Candida Gordon Secondary Field Sales Representative N/A N/A N/A Roni Yadav Primary Field Sales Representative N/A N/A N/A Events Post-Transplant Pre-Transplant Admitted: 03/04/2020 Referred: 06/21/2019 Transplanted: 03/04/2020 Evaluation began: 0 Discharged: 03/07/2020 Committee: 11/20/2019 Center waitlisted: 0
--- OUTSIDE RECORDS SUMMARY | 2025-02-13 00:05 | XMS_ITS | Clinical Summary ---
Author Organization [facility] [employer] Address [address] [place] [address] Care Team Providers Care Public Relations Specialist Name Role Phone Peter Cooper MD Unavailable [phone] Brad Juarez MD Primary Care Provider [phone] Source Comments [facility],non-owned Affiliates and Associated Physician Practices is amultiple site organization consisting of ambulatory clinics and hospital sitesin [place], [place] and [place]. This disclosure is being madepursuant to the Care Everywhere program and may not contain all information available regarding this patient. Last updated 17.[facility] [employer] Allergies No known active allergies Medications * Be aware that medications may not be up to date on this document. Alwaysverify current medications with the patient. quinapril (ACCUPRIL) 40 MG tablet Take 80 mg by mouth daily. Active simvastatin (ZOCOR) 40 MG tablet Take 40 mg by mouth at bedtime. Active VIAGRA 100 MG tabletIndication s:HNP (herniated nucleus pulposus), lumbar,Lumbar stenosis,Lumbosa cral radiculitis TK 1/2 TO 1 T PO ONE HOUR BEFORE INTERCOURSE PRN 11 6 Active levothyroxine (SYNTHROID) 75 MCG tabletIndication s:HNP (herniated nucleus pulposus), lumbar,Lumbar stenosis,Lumbosa cral radiculitis 6 Active atorvastatin (LIPITOR) 10 MG tabletIndication s:HNP (herniated nucleus pulposus), lumbar,Lumbar stenosis,Lumbosa cral radiculitis Take 10 mg by mouth at bedtime Active QUEtiapine (SEROQUEL) 25 MG tabletIndication s:HNP (herniated nucleus pulposus), lumbar,Lumbar stenosis,Lumbosa cral radiculitis Take 25 mg by mouth at bedtime Active naproxen (NAPROSYN) 500 MG tabletIndication s:Trapezius strain, left, initial encounter,Chroni c scapular pain,Myofascial pain Take 500 mg by mouth 2 times daily Active Active Problems Problem Noted Date Diagnosed Date HTN (hypertension) 12/27/2008 Hypercholesterolemia 12/27/2008 Insomnia 12/27/2008 Anxiety 12/27/2008 Daytime Hypersomnolence 12/27/2008 Poor sleep hygiene 12/27/2008 Immunizations Immunization Administration Dates Next Due INFLUENZA VACCINE 01/12/2009 TETANUS 03/14/2006 Family History Medical History Relation Name Comments Heart Failure Father Relation Name Status Comments Father Social History Tobacco Use Types Packs/Day Years Used Date Smoking Tobacco: Former Cigarettes 1 20 0 03/14/1970 - 03/14/1990 Alcohol Use Standard Drinks/Week Comments Yes 6.7 (1 standard drink = 0.6 oz p ure alcohol) Sex and Gender Information Value Date Recorded Sex Assigned at Not on file 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 Gender Identity Not on file Sexual Orientation Not on file Last Filed Vital Signs Vital Sign Reading Time Taken Comments Blood Pressure 137/80 08/27/2015 8:51 AM CDT Pulse 71 08/27/2015 8:51 AM CDT Temperature 36.9 C (98.4 F) 08/22/2009 12:15 PM CDT Respiratory Rate 18 08/22/2009 12:15 PM CDT Oxygen Saturation 95% 08/22/2009 12:15 PM CDT Inhaled Oxygen Concentration - - Weight 97.5 kg (215 lb) 08/27/2015 8:51 AM CDT Height 190.5 cm (6' 3) 08/27/2015 8:51 AM CDT Body Mass Index 26.87 08/27/2015 8:51 AM CDT Plan of Treatment Health Maintenance Due Date Last Done Comments COLOGUARD (AGES 45-75) - COL ON CA SCREENING 1950 COLON MONITORING 1950 COLONOSCOPY - COLON CA SCREENING 1950 CT COLONOGRAPHY - COLON CA SCREENING 1950 Colorectal Cancer Screening 1950 FIT - COLON CA SCREENING 1950 FLEX SIG - COLON CA SCREENING 1950 HEPATITIS C SCREENING 07/03/1968 PNEUMOCOCCAL VACCINE 50+ (1 of 1 - PCV) 2000 ZOSTER VACCINE (1 of 2) 2000 AAA SCREENING 07/09/2015 DTAP/TDAP/TD VACCINES (2 - T d or Tdap) 03/14/2016 03/14/2006 DEPRESSION SCREENING 03/14/2024 COVID-19 VACCINE (1 - 2024-2 6 season) 2024 INFLUENZA VACCINE (#1) 2024 01/12/2009 Respiratory Syncytial Virus (RSV) Vaccine Pt: or over 60 yrs (1 - 1-dose 75+ series) 2025 HEPATITIS B VACCINE Aged Out No longe r eligible based on patient's age to complete this topic HIB VACCINE Aged Out No longer eligi ble based on patient's age to complete this topic HPV VACCINE Aged Out No longer eligi ble based on patient's age to complete this topic MENINGOCOCCAL (Group B) VACC INE SHARED DECISION-MAKING Aged Out No longer eligibl e based on patient's age to complete this topic MENINGOCOCCAL GROUPS A/C/Y/W VACCINE Aged Out No longer eligible b ased on patient's age to complete this topic Insurance MEDICARE FORMERLY [facility] [address] Care Teams Public Relations Specialist Relationship Specialty [place] [id number] [place] [address] PCP - General Family Medicine 08/27/15 [place] [id number] [place] [address] Anesthesiology-Pain Management 08/27/15
--- OUTSIDE RECORDS SUMMARY | 2025-02-13 00:05 | XMS_ITS ---
Author Organization [facility] Address [address] [place] [address] Care Team Providers Care Knobber Name Role Phone Brad Juarez MD Primary Care Provider [phone] Surya Christine MD Unavailable [phone] Srinivasan Baig MD Unavailable Pearl Muller RN Unavailable Unavailabl e Active Problems Patient Care Coordination No te Formatting of this note migh t be different from the original. [facility]: Q-MONTHLY, FK; Q-3 ROUTINE (Exp 09/25/24) [facility]: (Exp 03/28/25) Problem Noted Date [...] 12/27/2008 Insomnia 12/27/2008 Poor sleep hygiene 12/27/2008 Current Treatment and Therapy Plans No current plan information found. Past Treatment and Therapy Plans BMT/ONC IP BLOOD PRODUCTS Plan Name Start Date Discontinue Date Treatment Medications Discontinue Reason Plan Provider BMT (CMV NEGATIVE/UNTESTED) ADULT BLOOD AND PLATELET ADMINISTRATION FOR INPATIENT (VERSION 02/28) 06/12/2018 06/17/2018 No medications scheduled. Patient Discharged Srinivasan Hernandez MD Oncology Chemotherapy Treatment Plan Name Start Date Discontinue Date Treatment Medications Discontinue Reason Plan Provider Cycles Lenalidomide Maintenance 28 Day Cycles - Myeloma 8 08/29/2020 lenalidomide (REVLIMID) Provider Discretion Srinivasan Mace MD 28 of 30 cycles started BMT - Standard Hematopoietic Progenitor Cell Mobilization (Auto) Standard GCSF and Plerixafor (Mozobil) 11/18/2017 12/15/2017 plerixafor (MOZOBIL) Therapy Complete Srinivasan Mace MD 1 of 1 cycle started Bortezomib / Lenalidomide / Dexamethasone PO 21 Day Cycles - Myeloma 8 11/17/2017 bortezomib (VELCADE)borte zomib (VELCADE) 2.5 mg/mLlenalidom jess (REVLIMID) Therapy Complete Srinivasan Mace MD 4 of 8 cycles completed Oncology Supportive Care Therapy Plan Plan Name Start Date Discontinue Date Treatment Medications Discontinue Reason Plan Provider DENOSUMAB (XGEVA) INJECTION 09/27/2017 09/09/2022 No medications scheduled. Therapy Complete Srinivasan Malcolm MD PHERESIS Plan Name Start Date Discontinue Date Treatment Medications Discontinue Reason Plan Provider APHERESIS CELLULAR THERAPY CELL COLLECTION 11/22/2017 02/19/2018 No medications scheduled. Therapy Complete Srinivasan Hernandez MD Specialty Infusion Treatment Plan Name Start Date Discontinue Date Treatment Medications Discontinue Reason Plan Provider Evusheld 300 mg/300 mg Standard Dose 09/30/2021 05/10/2022 No medications scheduled. Orders Srinivasan Malcolm MD Lifetime Dose Tracking * Chemical Lifetime Dose Automatic Entry Manual Entr y Fluoro Time 0.2 minutes 0.2 minutes 0 minutes Air kerma at the reference point (Ka,r) 1 mGy 1 mGy 0 mGy DLP 4,632 mGycm 4,632 mGycm 0 mGycm Resolved Problems Problem Noted Date Diagnosed Date Resolved Date ESRD (end stage renal disease) 02/12/2020 03/05/2020 Overview (02/12/2020): Added automatically from request for surgery [id number]
[2025-02-13 07:16] VITALS: BP 133/80; PULSE 100; RESP 16; TEMP 36.1; O2SAT 98
[2025-02-13] MEDS: LACTATED RINGERS 1,000 ML 150 ML IV CONT (07:28)
--- NOTE | 2025-02-13 08:06 | PM.IMHP2 ---
H&P: HPI History of Present Illness Date/Time: 02/13/25 08:06 Chief Complaint: Screening colonoscopy Narrative: This is the patient's 3rd colonoscopy. There are no GI symptoms and there is no family history of colorectal cancer. Review of Systems Review of Systems: All systems reviewed & are unremarkable except as noted in HPI and below PMFSH Past Medical History Medical History (Updated 07/31/24 @ 10:03 by Brad Juarez MD) At low risk for fall Essential (primary) hypertension BMI 25.0-25.9,adult Hypothyroidism, unspecified Peripheral neuropathy due to chemotherapy Obstructive sleep apnea history of TRAE previously treated with CPAP with patient doing well with weight loss. GERD (gastroesophageal reflux disease) Vitamin B12 deficiency level low at 245 with hemoglobin 16.1 on 11/09/2023. Colon cancer screening last colonoscopy normal around 64 with recheck in 10 years Squamous cell cancer of skin of right forearm (~2021) Chronic low back pain with right-sided sciatica BMI 27.0-27.9,adult Overweight (BMI 25.0-29.9) Pulmonary interstitial fibrosis (~2020) moderate on CT scan, followed by security site supervisor with family members needing lung transplant. Encounter for other specified surgical aftercare Sinusitis, acute History of multiple myeloma Umbilical hernia without mention of obstruction or gangrene COVID-19 (03/24/21) treated with monoclonal antibody infusion Nocturia BMI 26.0-26.9,adult BPH without obstruction/lower urinary tract symptoms Abnormal fasting glucose Fasting glucose 103 with hemoglobin A1c 5.6 with GFR 69 on 11/09/2023. Chronic anemia Hemoglobin 15.2 on 09/24/2022. Hemoglobin 16.1, iron 101 with 34% saturation and ferritin 134 with vitamin B12 245 and folic acid 14.8 on 11/09/2023. Chronic kidney disease (CKD) stage G4/A3, severely decreased glomerular filtration rate (GFR) between 15-29 mL/min/1.73 square meter and albuminuria creatinine ratio greater than 300 mg/g received kidney transplant Vitamin D insufficiency Level normal at 33 on 11/09/2023. Chronic anxiety Male erectile dysfunction, unspecified Total testosterone 297 with free testosterone 37.6 on 11/09/2023. Enlarged thyroid TSH 2.89 with free T4 at 1.4 on 11/09/2023. Surgical History Surgical History (Updated 12/29/23 @ 11:15 by Brad Juarez MD) History of umbilical hernia repair 09/02/2021 Renal transplant recipient BUN 16, creatinine 1.13 with GFR 69 on 11/09/2023. Family History Family History Father Family history of cardiovascular disease, Onset Age: 83 Family history of chronic obstructive pulmonary disease, Onset Age: 83 Family history of renal failure, Onset Age: 83 Sibling Acute myocardial infarction, Onset Age: 62 Grandparent Family history of malignant neoplasm Family history of chronic obstructive pulmonary disease, Onset Age: 83 Social History Social History Smoking packs per day: 0.5 Smoking cigarettes per day: 10.0 Years smoked: 15 Smoking pack-years: 7.50 Smoking status: Former smoker Tobacco type: cigarettes Smoking end date: 09/12/79 Additional smoking assessment comments: 1/2 pack daily for ten years Alcohol intake: current Drinks per week: 3 Alcohol use details: Rarely beer Substance use: never Substance use type: does not use Lack of Transportation: No Lack of Food: Never True Current Housing: I Have Housing Concerned About Future Housing: No Difficulty Paying Gas/Electric Bills: No Difficulty Paying for Meds: No Currently Unemployed: No Education: Bachelor's Degree Difficulty w/ Childcare or Family Care: No Living arrangements: with family Additional living arrangements comments: Occupation/Education: retired Spiritual care concerns: No Meds Home Medications and Allergies Home Medications ?Medication ?Instructions ?Recorded ?Confirmed ?Type B-complex with vitamin C 1 cap PO DAILY 01/17/19 01/28/25 History aspirin 81 mg tablet,delayed 81 mg PO DAILY 01/17/19 01/28/25 History release prednisone 5 mg tablet 5 mg PO QAM 07/28/20 02/13/25 History famotidine-Ca carb-mag hydrox 10 1 tablet PO BID PRN indigestion 12/29/23 01/28/25 History mg-800 mg-165 mg chewable tablet (Pepcid Complete) cholecalciferol (vitamin D3) 25 1,000 unit PO DAILY 07/31/24 01/28/25 History mcg (1,000 unit) capsule nintedanib 150 mg capsule (Ofev) 150 mg PO Q12H 07/31/24 01/28/25 History tacrolimus 1 mg capsule, 1 mg PO DAILY 07/31/24 01/28/25 History immediate-release (Prograf) atorvastatin 10 mg tablet 10 mg PO DAILY #90 tabs 11/13/24 01/28/25 Rx levothyroxine 75 mcg tablet 75 mcg PO QAM #90 tabs 11/13/24 02/13/25 Rx quetiapine 50 mg tablet 25 mg PO DAILY 01/28/25 01/28/25 History Allergies Allergy/AdvReac Type Severity Reaction Status Date / Time No Known Allergies Allergy Verified 02/13/25 07:15 Vital Signs Vital Signs - 24 hr 02/13/25 07:16 Temperature 97 F L Pulse Rate 100 Respiratory Rate 16 Blood Pressure 133/80 Pulse Oximetry 98 Oxygen Delivery Room Air Exam Const: General: cooperative and healthy appearing Resp: Effort & Inspection: normal respiratory effort and able to speak in complete sentences Auscultation: clear to auscultation bilaterally Cardio: Rate: regular rate Rhythm: regular rhythm GI: Inspection: normal to inspection GI Palp: No No hepatosplenomegaly present Auscultation: normal bowel sounds Rectal Exam: deferred Skin: General skin exam: normal color Psych: Appearance: grossly normal Mental Status: mental status grossly normal Assessment and Plan Assessment and plan (1) Colon cancer screening: Code(s): Z12.11 - Encounter for screening for malignant neoplasm of colon Status: Acute Assessment and Plan: The patient is deemed a good candidate for the procedure. Consent signed. Will proceed. Prior Studies I have reviewed the following patient records and this information was taken into consideration when formulating the assessment and plan.: previous labs, previous ER visits, previous hospitalizations and previous clinic visits
[2025-02-13 08:32] VITALS: BP 85/47; PULSE 71; RESP 20; O2SAT 95
[2025-02-13 08:42] VITALS: BP 90/55; PULSE 69; RESP 18; O2SAT 99
[2025-02-13 08:52] VITALS: BP 102/60; PULSE 69; RESP 19; O2SAT 99
--- NOTE | 2025-02-14 14:53 | WPDANESEPPF ---
Anes - Initial Pre Proc Eval Procedure: Operation Date: 02/13/25 08:30 Proposed Procedures p Screening Colonoscopy - Jose Nayak MD Date/Time: 02/14/25 14:53 Surgeon: Jose Nayak MD Pre Op Diagnosis: Encounter for screening for malignant neoplasm of Patient Data Age: 74 Gender: M Height: 1.91 m Weight: 90.4 kg Last Vital Signs Temp 36.1 C L 02/13/25 07:16 Pulse 69 02/13/25 08:52 Resp 19 02/13/25 08:52 BP 102/60 02/13/25 08:52 Pulse Ox 99 02/13/25 08:52 O2 Del Method Room Air 02/13/25 08:52 Allergies Allergy/AdvReac Type Severity Reaction Status Date / Time No Known Allergies Allergy Verified 02/13/25 07:15 Home Medications ?Medication ?Instructions ?Recorded ?Confirmed ?Type B-complex with vitamin C 1 cap PO DAILY 01/17/19 01/28/25 History aspirin 81 mg tablet,delayed 81 mg PO DAILY 01/17/19 01/28/25 History release prednisone 5 mg tablet 5 mg PO QAM 07/28/20 02/13/25 History famotidine-Ca carb-mag hydrox 10 1 tablet PO BID PRN indigestion 12/29/23 01/28/25 History mg-800 mg-165 mg chewable tablet (Pepcid Complete) cholecalciferol (vitamin D3) 25 1,000 unit PO DAILY 07/31/24 01/28/25 History mcg (1,000 unit) capsule nintedanib 150 mg capsule (Ofev) 150 mg PO Q12H 07/31/24 01/28/25 History tacrolimus 1 mg capsule, 1 mg PO DAILY 07/31/24 01/28/25 History immediate-release (Prograf) atorvastatin 10 mg tablet 10 mg PO DAILY #90 tabs 11/13/24 01/28/25 Rx levothyroxine 75 mcg tablet 75 mcg PO QAM #90 tabs 11/13/24 02/13/25 Rx quetiapine 50 mg tablet 25 mg PO DAILY 01/28/25 01/28/25 History vardenafil 20 mg tablet 20 mg PO DAILY PRN sexual activity 02/13/25 Rx #30 tabs Patient hx anesthesia problems: none Family hx anesthesia problems: none Results Review: All pre-operative results and documents have been reviewed as part of the pre-operative evaluation. [facility] Past Medical History Medical History (Updated 07/31/24 @ 10:03 by Brad Juarez MD) At low risk for fall Essential (primary) hypertension BMI 25.0-25.9,adult Hypothyroidism, unspecified Peripheral neuropathy due to chemotherapy Obstructive sleep apnea history of TRAE previously treated with CPAP with patient doing well with weight loss. GERD (gastroesophageal reflux disease) Vitamin B12 deficiency level low at 245 with hemoglobin 16.1 on 11/09/2023. 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 Encounter for other specified surgical aftercare Sinusitis, acute History of multiple myeloma Umbilical hernia without mention of obstruction or gangrene COVID-19 (03/24/21) treated with monoclonal antibody infusion Nocturia BMI 26.0-26.9,adult BPH without obstruction/lower urinary tract symptoms Abnormal fasting glucose Fasting glucose 103 with hemoglobin A1c 5.6 with GFR 69 on 11/09/2023. Chronic anemia Hemoglobin 15.2 on 09/24/2022. Hemoglobin 16.1, iron 101 with 34% saturation and ferritin 134 with vitamin B12 245 and folic acid 14.8 on 11/09/2023. Chronic kidney disease (CKD) stage G4/A3, severely decreased glomerular filtration rate (GFR) between 15-29 mL/min/1.73 square meter and albuminuria creatinine ratio greater than 300 mg/g received kidney transplant Vitamin D insufficiency Level normal at 33 on 11/09/2023. Chronic anxiety Male erectile dysfunction, unspecified Total testosterone 297 with free testosterone 37.6 on 11/09/2023. Enlarged thyroid TSH 2.89 with free T4 at 1.4 on 11/09/2023. Surgical History Surgical History (Updated 12/29/23 @ 11:15 by Brad Juarez MD) History of umbilical hernia repair 09/02/2021 Renal transplant recipient BUN 16, creatinine 1.13 with GFR 69 on 11/09/2023. Family History Family History Father Family history of cardiovascular disease, Onset Age: 83 Family history of chronic obstructive pulmonary disease, Onset Age: 83 Family history of renal failure, Onset Age: 83 Sibling Acute myocardial infarction, Onset Age: 62 Grandparent Family history of malignant neoplasm Family history of chronic obstructive pulmonary disease, Onset Age: 83 Social History Social History Smoking packs per day: 0.5 Smoking cigarettes per day: 10.0 Years smoked: 15 Smoking pack-years: 7.50 Smoking status: Former smoker Tobacco type: cigarettes Smoking end date: 09/12/79 Additional smoking assessment comments: 1/2 pack daily for ten years Alcohol intake: current Drinks per week: 3 Alcohol use details: Rarely beer Substance use: never Substance use type: does not use Lack of Transportation: No Lack of Food: Never True Current Housing: I Have Housing Concerned About Future Housing: No Difficulty Paying Gas/Electric Bills: No Difficulty Paying for Meds: No Currently Unemployed: No Education: Bachelor's Degree Difficulty w/ Childcare or Family Care: No Living arrangements: with family Additional living arrangements comments: Occupation/Education: retired Spiritual care concerns: No Anes - Eval Final PreProcedure Day of Procedure 02/14/25 14:53 Patient weight: normal Heart: regular rate and rhythm Lungs: clear to auscultation and normal air movement Airway: Mallampati scale class II Neurological: alert and oriented Last oral intake: >/= 8 hours ASA classification: III Emergent: no Anesthetic plan: proceed Anesthesia type and monitoring: general GIVS and standard monitoring Results Review: All pre-operative results and documents have been reviewed as part of the pre-operative evaluation. Informed Consent: The patient's anesthetic plan and its attendant risks and benefits were discussed with the patient/family/POA. Questions were solicited and answers provided to the satisfaction of the patient/family/POA.
== END 2025-02-13 09:04 | disposition home or self-care (01) ==
PROVIDERS: PCP Family Medicine; Visit Provider Internal Medicine Gastroenterology
PROC: 0DJD8ZZ Inspection of Lower Intestinal Tract, Via Natural or Artificial Opening Endoscopic (ICD-10-PCS; CPT 45378; principal; 2025-02-13 08:30)
DX: Z12.11 Encounter for screening for malignant neoplasm of colon (principal); Z87.891 Personal history of nicotine dependence
CPT/HCPCS: G0121; J2704; J7120